=== PATIENT | female | born 1955 | race Caucasian/White ===

== ENCOUNTER 2017-03-13 10:38 | Day surgery (SDC) | payer BC, MEDICARE ==
[2017-03-13] MEDS ORDERED: Cyanocobalamin (Vitamin B12) 1,000 MCG/ML SDV IM ONE (11:15)
[2017-03-13] MEDS ORDERED: Lactated Ringers 1,000 ML IV SCH (11:15)
[2017-03-13] MEDS ORDERED: Glycopyrrolate 0.2 MG/ML 2 ML SDV IVPUSH ONE (12:15)
[2017-03-13] MEDS ORDERED: MVI, Adult with Vitamin K 10 ML, Thiamine 200 MG, Chromium/Copper/Mang/Selen/Zn 1 ML in... IV ONE ×4 (12:15)
[2017-03-13] MEDS ORDERED: Propofol 200 MG/20 ML SDV ONE (12:49)
[2017-03-13] MEDS ORDERED: fentaNYL 100 MCG/2 ML SDV ONE (12:49)
[2017-03-13] MEDS ORDERED: Pantoprazole 40 MG Vial IVPUSH ONE (14:00)
[2017-03-13 17:22] VITALS: BP 112/62
--- NOTE | 2017-03-19 12:01 | OR ---
DATE OF PROCEDURE: 03/13/2017 PREOPERATIVE DIAGNOSES: Chronic nausea associated with dropping hemoglobin. 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 OPERATIVE PROCEDURE: Upper GI endoscopy with biopsy of gastric pouch for CLOtest. ANESTHESIA: IV sedation. INDICATION FOR PROCEDURE: This is a 61-year-old status post Maikol-en-Y gastric bypass approximately a year ago. Recently she had increasing problems with nausea and dropping hemoglobin; hemoglobin having dropped to 10.7 in November, 9.8 in January, and most recently 8.7. This was associated with some persistent nausea and some epigastric discomfort. A colonoscopy done last week was reportedly normal. Plan is to proceed with an upper GI endoscopy with biopsies as indicated. Potential risks including bleeding and perforation were discussed, and the patient wishes to proceed. DETAILS OF PROCEDURE: The patient was taken to the operating room, placed in a left lateral decubitus position. IV sedation was administered, after which the upper GI endoscope was passed orally through the length of the esophagus into the gastric pouch, from there through roughly 20 cm beyond the gastrojejunostomy into the Maikol limb. Findings included a normal esophagus and EG junction area. Within the gastric pouch, there was multiple small erosions present. These were not actively bleeding, but there was some blood, that was both red and dark coffee-ground type color scattered within the gastric pouch, there was no true ulceration and no marginal ulceration at the gastrojejunostomy and the remaining portion of the Maikol limb was unremarkable. Biopsies were then obtained from the gastric pouch, sent for CLOtest for H. pylori. Minimal bleeding from the biopsy site was seen and the procedure was then concluded. The patient was taken to the recovery room in satisfactory condition. The patient will be given Protonix 40 mg IV in the recovery room and then begun on Protonix 40 mg daily #30, with refill x1 year. She will also be given Zofran 4 mg ODT to take p.r.n. in the interim. She will be following up with Naz Motley at [facility] in 2 weeks with a CBC and ferritin level to be obtained at that time. Mikey Logan MD /[id number]
== END 2017-03-13 14:35 | disposition home or self-care (01) ==
LOC: JP.SDS 10:38
PROVIDERS: ATTEND Surgery
DX: K29.00 Acute gastritis without bleeding (principal); E11.22 Type 2 diabetes mellitus with diabetic chronic kidney disease; I12.9 Hypertensive chronic kidney disease with stage 1 through stage 4 chronic kidney disease, or unspecified chronic kidney disease; N18.3 Chronic kidney disease, stage 3 (moderate); E66.9 Obesity, unspecified; E55.9 Vitamin D deficiency, unspecified; Z68.30 Body mass index [BMI] 30.0-30.9, adult; Z98.890 Other specified postprocedural states; F41.9 Anxiety disorder, unspecified; F32.9 Major depressive disorder, single episode, unspecified; Z88.8 Allergy status to other drugs, medicaments and biological substances; Z90.49 Acquired absence of other specified parts of digestive tract; Z98.84 Bariatric surgery status
CPT/HCPCS: 36415; 43239; 82607; 82728; 85027; 87081; C9113; J2704; J3010; J3411; J3420; J7120; J3490

== ENCOUNTER 2017-04-02 01:20 | Inpatient (IN) | payer MEDICARE ==
[2017-04-02] MEDS ORDERED: Ondansetron 4 MG/2 ML SDV IV PRN (01:44)
[2017-04-02] MEDS: Metoclopramide 10 MG/2 ML SDV IVPUSH SCH ×4 (03:32→22:00)
[2017-04-02] MEDS ORDERED: Pantoprazole 40 MG Vial IVPUSH SCH (04:00)
[2017-04-02] MEDS ORDERED: FLU Vacc QS 2017-18 (36mos UP)/PF 60 MCG/0.5 ML Syringe IM ONE (10:00)
[2017-04-02] MEDS: diphenhydrAMINE 25 MG Cap PO PRN ×2 (10:52→20:50)
--- NOTE | 2017-04-02 11:03 | PCM.CONS ---
H&P History of Present Illness - General Date of Service: 04/02/17 Admit Problem/Dx: Admission Diagnosis/Problem Admission Diagnosis/Problem Nausea Source of Information: Patient, Provider History Limitations: Reports: No Limitations - History of Present Illness Initial Comments - Free Text/Narative: Mattie was admitted last night after presenting to the emergency room in [place]. She was transferred here with concern for incarcerated ventral hernia. I was asked to see her this morning by Dr. Logan/Naz Motley regarding lower extremity edema, lactic acidosis and nausea. She reports a three-month difficulty with nausea and she has been eating less and less each day. She has not had anything to eat in almost 5 days because of the nausea. She has intermittent abdominal pains but these are relatively mild. Nausea is present all day long and seems even a little bit worse when she tries to eat. She has had upper endoscopy which was unremarkable. She has not had any fevers or chills. She has noticed over the last month that there has been increased swelling in both of her legs. She did have Unna boots for a while but these caused a rash and have been discontinued. Lower extremity edema is still present but improved compared to a week ago. She does not have orthopnea. She does not have paroxysmal nocturnal dyspnea. Bowels and bladder have been functioning normally. - Related Data Allergies/Adverse Reactions: Allergies Allergy/AdvReac Type Severity Reaction Status Date / Time Benzodiazepines AdvReac Other Verified 03/13/17 11:02 Home Medications: Home Meds Cyanocobalamin (Vitamin B-12) [Vitamin B-12] 1,000 mcg SL DAILY 09/22/15 [ History] tiZANidine [Zanaflex] 4 mg PO DAILY PRN 09/22/15 [History] DULoxetine [Cymbalta] 120 mg PO BEDTIME 03/08/16 [History] Multivitamin W/Iron, Minerals [Flintstones Complete] 1 each PO BID #100 tab.chew 03/13/16 [Rx] Ondansetron [Zofran ODT] 4 mg PO Q6H PRN #30 tab.dis 03/13/16 [Rx] Cholecalciferol (Vitamin D3) [Cholecalciferol] 2,000 units PO DAILY 03/12/17 [ History] Cholecalciferol (Vitamin D3) [Vitamin D3] 50,000 unit PO WEEKLY 03/12/17 [ History] Furosemide [Lasix] 40 mg PO BID 03/12/17 [History] Levothyroxine Sodium [Synthroid] 75 mcg PO DAILY 03/12/17 [History] Thiamine HCl [Vitamin B-1] 100 mg PO DAILY 03/12/17 [History] buPROPion HCl [Wellbutrin SR] 150 mg PO DAILY 03/12/17 [History] Past Medical History HEENT History: Reports: Impaired Vision Cardiovascular History: Reports: Hypertension, Other (See Below) Other Cardiovascular History: leg edema Respiratory History: Reports: Pneumonia, Recurrent Gastrointestinal History: Reports: Cholelithiasis, Chronic Diarrhea, Hemorrhoids Genitourinary History: Reports: Renal Calculus, UTI, Recurrent TRIAGE SPECIALIST History: Reports: Musculoskeletal History: Reports: Back Pain, Chronic, Fracture, Other (See Below ) Other Musculoskeletal History: right ankle with pins and screws Neurological History: Reports: Concussion, Neuropathy, Peripheral Other Neuro History: left leg Psychiatric History: Reports: Anxiety, Depression, Mood Swings, Panic Attack Endocrine/Metabolic History: Reports: Diabetes, Type II, Obesity/BMI 30+, Vitamin D Deficiency Hematologic History: Reports: Anemia, B12 Deficiency, Iron Deficiency, Other ( See Below) Other Hematologic History: iron infusions - Infectious Disease History Infectious Disease History: Reports: Herpes, Measles, Mumps - Past Surgical History Head Surgeries/Procedures: Reports: None GI Surgical History: Reports: Bariatric Procedure, Cholecystectomy, Colonoscopy , Other (See Below) Other GI Surgeries/Procedures: revision RNY Female Surgical History: Reports: Lithotripsy/ESWL, Tubal Ligation Neurological Surgical History: Reports: Other (See Below) Other Neurological Surgeries/Procedures: back surgery x 2. Musculoskeletal Surgical History: Reports: Other (See Below) Other Musculoskeletal Surgeries/Procedures:: right ankle Social & Family History - Family History Family Medical History: Noncontributory - Tobacco Use Smoking Status *Q: Never Smoker Second Hand Smoke Exposure: No - Caffeine Use Caffeine Use: Reports: None - Alcohol Use Alcohol Use History: No - Recreational Drug Use Recreational Drug Use: No H&P Review of Systems - Review of Systems: Review Of Systems: See Below Free Text/Narrative: A complete 12 point review of systems was obtained. Pertinent positives and negatives are noted in the history of present illness. All other systems were reviewed and were negative except as noted. Exam - Exam Exam: See Below - Vital Signs Vital Signs: Last Vital Signs Temp 37.6 C 04/02/17 07:25 Pulse 115 H 04/02/17 07:25 Resp 16 04/02/17 07:25 BP 141/98 H 04/02/17 07:25 Pulse Ox 99 04/02/17 07:25 Weight: 86.636 kg - Exam Quality Assessment: No: Supplemental Oxygen General: Alert, Oriented, Cooperative. No: Mild Distress HEENT: Conjunctiva Clear. No: Mucosa Moist & [place] (dry), Scleral Icterus Neck: Supple, Trachea Midline. No: Lymphadenopathy Lungs: Clear to Auscultation, Normal Respiratory Effort Cardiovascular: Regular Rate, Regular Rhythm. No: Normal S1, Normal S2 GI/Abdominal Exam: Normal Bowel Sounds, Soft, Non-Tender, No Distention, No Mass. No: Hernia Back Exam: Normal Inspection. No: Muscle Spasm Extremities: Pedal Edema (pitting edema both lower legs). No: Increased Warmth Skin: Warm, Dry, Rash (chronic venous stasis both lower legs) Neuro Extensive - Mental Status: Alert, Oriented x3, Nl Response to Commands Neuro Extensive - Motor, Sensory, Reflexes: CN II-XII Intact. No: Dysarthria, Abnormal Motor, Tremor Psychiatric: Alert, Normal Affect - Patient Data Lab Results Last 24 hrs: Laboratory Results - last 24 hr 04/02/17 04/02/17 04/02/17 Range/Units 04:00 04:00 04:00 WBC 8.1 (4.5-11.0) K/uL RBC 3.16 L (3.30-5.50) M/uL Hgb 9.2 L (12.0-15.0) g/dL Hct 29.5 L (36.0-48.0) % MCV 93 (80-98) fL MCH 29 (27-31) pg MCHC 31 L (32-36) % Plt Count 381 (150-400) K/uL Sodium 143 (140-148) mmol/L Potassium 3.8 (3.6-5.2) mmol/L Chloride 111 H (100-108) mmol/L Carbon Dioxide 23 (21-32) mmol/L Anion Gap 12.8 (5.0-14.0) mmol/L BUN 21 H (7-18) mg/dL Creatinine 1.7 H D (0.6-1.0) mg/dL Est Cr Clr Drug Dosing 32.94 mL/min Estimated GFR (MDRD) 30 L (>60) Glucose 108 H (74-106) mg/dL Lactic Acid 3.3 H (0.4-2.0) mmol/L Calcium 7.5 L D (8.5-10.1) mg/dL Phosphorus 3.8 (2.5-4.9) mg/dL Magnesium 1.7 L (1.8-2.4) mg/dL Total Bilirubin 0.8 (0.2-1.0) mg/dL AST 15 (15-37) U/L ALT 27 (12-78) U/L Alkaline Phosphatase 109 (46-116) U/L NT-Pro-B Natriuret Pep (5-125) pg/mL Total Protein 4.5 L (6.4-8.2) g/dL Albumin 1.6 L (3.4-5.0) g/dL Globulin 2.9 (2.3-3.5) g/dL Albumin/Globulin Ratio 0.6 L (1.2-2.2) 04/02/17 Range/Units 08:41 WBC (4.5-11.0) K/uL RBC (3.30-5.50) M/uL Hgb (12.0-15.0) g/dL Hct (36.0-48.0) % MCV (80-98) fL MCH (27-31) pg MCHC (32-36) % Plt Count (150-400) K/uL Sodium (140-148) mmol/L Potassium (3.6-5.2) mmol/L Chloride (100-108) mmol/L Carbon Dioxide (21-32) mmol/L Anion Gap (5.0-14.0) mmol/L BUN (7-18) mg/dL Creatinine (0.6-1.0) mg/dL Est Cr Clr Drug Dosing mL/min Estimated GFR (MDRD) (>60) Glucose (74-106) mg/dL Lactic Acid (0.4-2.0) mmol/L Calcium (8.5-10.1) mg/dL Phosphorus (2.5-4.9) mg/dL Magnesium (1.8-2.4) mg/dL Total Bilirubin (0.2-1.0) mg/dL AST (15-37) U/L ALT (12-78) U/L Alkaline Phosphatase (46-116) U/L NT-Pro-B Natriuret Pep 726 H (5-125) pg/mL Total Protein (6.4-8.2) g/dL Albumin (3.4-5.0) g/dL Globulin (2.3-3.5) g/dL Albumin/Globulin Ratio (1.2-2.2) Result Diagrams: 04/02/17 04:00 04/02/17 04:00 Imaging Impressions Last 24 hrs: CT abd/pelvis - no evidence for obstruction. Possible loops of bowel in ventral hernia. No other acute findings. Hx of gastric bypass. Consult PN Assessment/Plan Procedures: Procedures ASSAY OF FERRITIN (03/13/17) ASSAY OF MAGNESIUM (03/11/16) ASSAY OF NATRIURETIC PEPTIDE (03/11/16) ASSAY OF PHOSPHORUS (03/11/16) BLOOD TYPING SEROLOGIC ABO (03/11/16) BLOOD TYPING SEROLOGIC RH(D) (03/11/16) COMPLETE CBC AUTOMATED (03/13/17) CULTURE SCREEN ONLY (03/13/17) EGD BIOPSY SINGLE/MULTIPLE (03/13/17) GLUCOSE BLOOD TEST (03/11/16) GLYCOSYLATED HEMOGLOBIN TEST (03/11/16) METABOLIC PANEL TOTAL CA (03/11/16) RBC ANTIBODY SCREEN (03/11/16) ROUTINE VENIPUNCTURE (03/13/17) VITAMIN B-12 (03/13/17) X-RAY UPPER GI DELAY W/O KUB (03/11/16) (1) Nausea SNOMED Code(s): 402208942 Code(s): R11.0 - NAUSEA Current Visit: Yes (2) Hypoalbuminemia due to protein-calorie malnutrition SNOMED Code(s): 351800787 Code(s): E46 - UNSPECIFIED PROTEIN-CALORIE MALNUTRITION Current Visit: Yes (3) CKD (chronic kidney disease) stage 3, GFR 30-59 ml/min SNOMED Code(s): 989864535 Code(s): N18.3 - CHRONIC KIDNEY DISEASE, STAGE 3 (MODERATE) Current Visit: No Problem List Initiated/Reviewed/Updated: Yes My Orders Last 24 Hours: My Active Orders 04/02/17 11:15 Lactated Ringers [Ringers, Lactated] 1,000 ml IV ASDIRECTED Plan: ASSESSMENT AND PLAN Lower extremity edema - suspect low albumin is leading to low oncotic pressure and dependent edema. Recent echocardiogram showed normal cardiac function. Slow progression over the past month and lack of response to diuretics suggests dependent edema/lymphedema. Swelling is better at this time. I would suspect that as her albumin improves that her edema should improve. She should respond to compression stockings if she is able to tolerate them. I don't believe that further cardiac workup is necessary at this time. -Elevate legs, consider compression stockings Lactic acidosis - I suspect this is related to hypoperfusion with poor intake and concurrent use of diuretics. This should improve with IV fluids. No evidence for infection. -IV fluids through the night -Repeat labs in the morning -Follow-up urinalysis Persistent nausea - patient reports 3 months of nausea and has had progressive difficulties with oral intake. CT scan did not reveal obvious pathology. No concerning medications on her home list that I can see. Exact cause for the nausea is not entirely clear. Hopefully with hydration this will help. -Symptomatic management -Advance diet as tolerated Stage III chronic kidney disease - creatinine elevated from baseline but not dramatically at this time. I suspect this is related to hypovolemia as well and should improve with fluids. -IV fluids -Labs in the morning Thank you for the interesting consultation and allowing me to be involved in Mattie's care. I will continue to follow along during the acute phase of the hospital stay. Cole Bell M.D. Requesting Provider: Dr. Logan/Naz Motley Date Consult Requested: 04/02/17 Reason for Consult: Lower extremity edema, nausea Patient History Reviewed: Yes Admission H&P Reviewed: No (Not available) Notified Requestor: No Time Spent (in minutes): 60 (Records from emergency room visit in [place] last night as well as nephrology and oncology notes were reviewed)
[2017-04-02] MEDS ORDERED: Lactated Ringers 1,000 ML IV ONE (11:15)
[2017-04-02] MEDS: Dextrose 5%-Lactated Ringers 1,000 ML IV SCH ×2 (13:42→23:17)
[2017-04-02] MEDS ORDERED: HYDROmorphone 0.5 MG/0.5 ML Syringe IVPUSH PRN (15:21)
--- NOTE | 2017-04-02 18:13 | PCM.HP ---
H&P History of Present Illness - General Date of Service: 04/02/17 Admit Problem/Dx: Admission Diagnosis/Problem Admission Diagnosis/Problem Nausea Source of Information: Patient History Limitations: Reports: Other (weak and tired. ) - History of Present Illness Initial Comments - Free Text/Narative: Mattie reports that in November she developed nausea and peripheral swelling. she states that she did not have any abdominal pain. Mattie went in to her provider and was found to have a low hemoglobin and for a few weeks it kept dropping. She also was found to be in Stage 3 kidney disease and started noticing a lot of swelling/fluid retention all over. Her legs started swelling and became so tight the skin opened up and she was having clear drainage from open areas in the skin of her legs. Nausea persisted and an EGD by Mikey Logan MD revealed gastritis. Mattie had GABBI Boots on her legs 2 weeks and had to remove them about 5 days early because her legs became allergic to the gabbi boots. Stoney went to the ED in [place] for nausea and inability to eat and was transferred by ambulance to [place], [place] Improves with: Reports: None Worsens with: Reports: None Associated Symptoms: Reports: Loss of Appetite, Malaise, Nausea/Vomiting, Weakness Abdomen Pain Score (Numeric/FACES): 5 - Related Data Allergies/Adverse Reactions: Allergies Allergy/AdvReac Type Severity Reaction Status Date / Time Benzodiazepines AdvReac Other Verified 03/13/17 11:02 Home Medications: Home Meds Cyanocobalamin (Vitamin B-12) [Vitamin B-12] 1,000 mcg SL DAILY 09/22/15 [ History] tiZANidine [Zanaflex] 4 mg PO DAILY PRN 09/22/15 [History] DULoxetine [Cymbalta] 120 mg PO BEDTIME 03/08/16 [History] Multivitamin W/Iron, Minerals [Flintstones Complete] 1 each PO BID #100 tab.chew 03/13/16 [Rx] Ondansetron [Zofran ODT] 4 mg PO Q6H PRN #30 tab.dis 03/13/16 [Rx] Cholecalciferol (Vitamin D3) [Cholecalciferol] 2,000 units PO DAILY 03/12/17 [ History] Cholecalciferol (Vitamin D3) [Vitamin D3] 50,000 unit PO WEEKLY 03/12/17 [ History] Furosemide [Lasix] 40 mg PO BID 03/12/17 [History] Levothyroxine Sodium [Synthroid] 75 mcg PO DAILY 03/12/17 [History] Thiamine HCl [Vitamin B-1] 100 mg PO DAILY 03/12/17 [History] buPROPion HCl [Wellbutrin SR] 150 mg PO DAILY 03/12/17 [History] Past Medical History HEENT History: Reports: Impaired Vision Cardiovascular History: Reports: Hypertension, Other (See Below) Other Cardiovascular History: leg edema Respiratory History: Reports: Pneumonia, Recurrent Gastrointestinal History: Reports: Cholelithiasis, Chronic Diarrhea, Hemorrhoids Genitourinary History: Reports: Renal Calculus, UTI, Recurrent [employer]ENTICE History: Reports: Musculoskeletal History: Reports: Back Pain, Chronic, Fracture, Other (See Below ) Other Musculoskeletal History: right ankle with pins and screws Neurological History: Reports: Concussion, Neuropathy, Peripheral Other Neuro History: left leg Psychiatric History: Reports: Anxiety, Depression, Mood Swings, Panic Attack Endocrine/Metabolic History: Reports: Diabetes, Type II, Obesity/BMI 30+, Vitamin D Deficiency Hematologic History: Reports: Anemia, B12 Deficiency, Iron Deficiency, Other ( See Below) Other Hematologic History: iron infusions - Infectious Disease History Infectious Disease History: Reports: Herpes, Measles, Mumps - Past Surgical History Head Surgeries/Procedures: Reports: None GI Surgical History: Reports: Bariatric Procedure, Cholecystectomy, Colonoscopy , Other (See Below) Other GI Surgeries/Procedures: revision RNY Female Surgical History: Reports: Lithotripsy/ESWL, Tubal Ligation Neurological Surgical History: Reports: Other (See Below) Other Neurological Surgeries/Procedures: back surgery x 2. Musculoskeletal Surgical History: Reports: Other (See Below) Other Musculoskeletal Surgeries/Procedures:: right ankle Social & Family History - Family History Family Medical History: Noncontributory - Tobacco Use Smoking Status *Q: Never Smoker Second Hand Smoke Exposure: No - Caffeine Use Caffeine Use: Reports: None - Recreational Drug Use Recreational Drug Use: No H&P Review of Systems - Review of Systems: Review Of Systems: See Below General: Reports: Malaise, Weakness, Fatigue HEENT: Reports: No Symptoms Pulmonary: Reports: Shortness of Breath, Cough Cardiovascular: Reports: Dyspnea on Exertion, Edema, Lightheadedness Gastrointestinal: Reports: Decreased Appetite, Nausea Genitourinary: Reports: No Symptoms Musculoskeletal: Reports: Neck Pain, Back Pain, Muscle Stiffness Skin: Reports: No Symptoms Psychiatric: Reports: Depression, Anxiety Neurological: Reports: No Symptoms Hematologic/Lymphatic: Reports: Anemia Immunologic: Reports: No Symptoms Exam - Exam Exam: See Below - Vital Signs Vital Signs: Last Vital Signs Temp 99.2 F 04/02/17 15:00 Pulse 86 04/02/17 15:00 Resp 20 04/02/17 15:00 BP 164/92 H 04/02/17 15:00 Pulse Ox 100 04/02/17 15:00 Weight: 191 lb - Exam Quality Assessment: DVT Prophylaxis General: Moderate Distress, Lethargic HEENT: PERRLA, Other (marked facial swelling ) Neck: Supple Lungs: Decreased Breath Sounds Cardiovascular: Regular Rate, Regular Rhythm GI/Abdominal Exam: Soft, Non-Tender (Female) Exam: Deferred Rectal (Female) Exam: Deferred Back Exam: Normal Inspection, Full Range of Motion Extremities: Leg Pain, Other (legs are swollen, red and warm. skin is tight. ) Skin: Warm, Dry Neurological: Cranial Nerves Intact Neuro Extensive - Mental Status: Alert, Oriented x3, Normal Mood/Affect, Normal Cognition Neuro Extensive - Motor, Sensory, Reflexes: CN II-XII Intact Psychiatric: Alert, Labile Mood, Anxious - Patient Data Lab Results Last 24 hrs: Laboratory Results - last 24 hr 04/02/17 04/02/17 04/02/17 Range/Units 04:00 04:00 04:00 WBC 8.1 (4.5-11.0) K/uL RBC 3.16 L (3.30-5.50) M/uL Hgb 9.2 L (12.0-15.0) g/dL Hct 29.5 L (36.0-48.0) % MCV 93 (80-98) fL MCH 29 (27-31) pg MCHC 31 L (32-36) % Plt Count 381 (150-400) K/uL Sodium 143 (140-148) mmol/L Potassium 3.8 (3.6-5.2) mmol/L Chloride 111 H (100-108) mmol/L Carbon Dioxide 23 (21-32) mmol/L Anion Gap 12.8 (5.0-14.0) mmol/L BUN 21 H (7-18) mg/dL Creatinine 1.7 H D (0.6-1.0) mg/dL Est Cr Clr Drug Dosing 32.94 mL/min Estimated GFR (MDRD) 30 L (>60) Glucose 108 H (74-106) mg/dL Lactic Acid 3.3 H (0.4-2.0) mmol/L Calcium 7.5 L D (8.5-10.1) mg/dL Phosphorus 3.8 (2.5-4.9) mg/dL Magnesium 1.7 L (1.8-2.4) mg/dL Total Bilirubin 0.8 (0.2-1.0) mg/dL AST 15 (15-37) U/L ALT 27 (12-78) U/L Alkaline Phosphatase 109 (46-116) U/L NT-Pro-B Natriuret Pep (5-125) pg/mL Total Protein 4.5 L (6.4-8.2) g/dL Albumin 1.6 L (3.4-5.0) g/dL Globulin 2.9 (2.3-3.5) g/dL Albumin/Globulin Ratio 0.6 L (1.2-2.2) Urine Color Urine Appearance Urine pH (4.5-8.0) Ur Specific [place] (1.008-1.030) Urine Protein (NEGATIVE) mg/dL Urine Glucose (UA) (NEGATIVE) mg/dL Urine Ketones (NEGATIVE) mg/dL Urine Occult Blood (NEGATIVE) Urine Nitrite (NEGATIVE) Urine Bilirubin (NEGATIVE) Urine Urobilinogen (NORMAL) mg/dL Ur Leukocyte Esterase (NEGATIVE) Urine RBC (0-5) Urine WBC (0-5) Ur Epithelial Cells Amorphous Sediment Urine Bacteria Urine Mucus Urine Other Urine Opiates Screen (NEGATIVE) Ur Oxycodone Screen (NEGATIVE) Urine Methadone Screen (NEGATIVE) Ur Propoxyphene Screen (NEGATIVE) Ur Barbiturates Screen (NEGATIVE) Ur Tricyclics Screen (NEGATIVE) Ur Phencyclidine Scrn (NEGATIVE) Ur Amphetamine Screen (NEGATIVE) U Methamphetamines Scrn (NEGATIVE) Urine MDMA Screen (NEGATIVE) U Benzodiazepines Scrn (NEGATIVE) U Cocaine Metab Screen (NEGATIVE) U Marijuana (THC) Screen (NEGATIVE) 04/02/17 04/02/17 04/02/17 Range/Units 08:41 17:16 17:16 WBC (4.5-11.0) K/uL RBC (3.30-5.50) M/uL Hgb (12.0-15.0) g/dL Hct (36.0-48.0) % MCV (80-98) fL MCH (27-31) pg MCHC (32-36) % Plt Count (150-400) K/uL Sodium (140-148) mmol/L Potassium (3.6-5.2) mmol/L Chloride (100-108) mmol/L Carbon Dioxide (21-32) mmol/L Anion Gap (5.0-14.0) mmol/L BUN (7-18) mg/dL Creatinine (0.6-1.0) mg/dL Est Cr Clr Drug Dosing mL/min Estimated GFR (MDRD) (>60) Glucose (74-106) mg/dL Lactic Acid (0.4-2.0) mmol/L Calcium (8.5-10.1) mg/dL Phosphorus (2.5-4.9) mg/dL Magnesium (1.8-2.4) mg/dL Total Bilirubin (0.2-1.0) mg/dL AST (15-37) U/L ALT (12-78) U/L Alkaline Phosphatase (46-116) U/L NT-Pro-B Natriuret Pep 726 H (5-125) pg/mL Total Protein (6.4-8.2) g/dL Albumin (3.4-5.0) g/dL Globulin (2.3-3.5) g/dL Albumin/Globulin Ratio (1.2-2.2) Urine Color Yellow Urine Appearance Cloudy Urine pH 5.0 (4.5-8.0) Ur Specific [place] 1.015 (1.008-1.030) Urine Protein Negative (NEGATIVE) mg/dL Urine Glucose (UA) Normal (NEGATIVE) mg/dL Urine Ketones Negative (NEGATIVE) mg/dL Urine Occult Blood Negative (NEGATIVE) Urine Nitrite Negative (NEGATIVE) Urine Bilirubin Negative (NEGATIVE) Urine Urobilinogen Normal (NORMAL) mg/dL Ur Leukocyte Esterase Small (NEGATIVE) Urine RBC 0-5 (0-5) Urine WBC 0-5 (0-5) Ur Epithelial Cells Moderate Amorphous Sediment Few Urine Bacteria Few Urine Mucus Few Urine Other See note Urine Opiates Screen Negative (NEGATIVE) Ur Oxycodone Screen Negative (NEGATIVE) Urine Methadone Screen Negative (NEGATIVE) Ur Propoxyphene Screen Negative (NEGATIVE) Ur Barbiturates Screen Negative (NEGATIVE) Ur Tricyclics Screen Positive H (NEGATIVE) Ur Phencyclidine Scrn Negative (NEGATIVE) Ur Amphetamine Screen Negative (NEGATIVE) U Methamphetamines Scrn Negative (NEGATIVE) Urine MDMA Screen Negative (NEGATIVE) U Benzodiazepines Scrn Negative (NEGATIVE) U Cocaine Metab Screen Negative (NEGATIVE) U Marijuana (THC) Screen Negative (NEGATIVE) Result Diagrams: 04/02/17 04:00 04/02/17 04:00 *Q Meaningful Use (ADM) - VTE *Q VTE Criteria *Q: - Stroke *Q Stroke Criteria *Q: - AMI *Q AMI Criteria *Q: - Problem List (1) Nausea SNOMED Code(s): 208325474 ICD Code: R11.0 - NAUSEA Status: Acute Current Visit: Yes (2) Hypoalbuminemia due to protein-calorie malnutrition SNOMED Code(s): 267600562 ICD Code: E46 - UNSPECIFIED PROTEIN-CALORIE MALNUTRITION Status: Acute Current Visit: Yes (3) Panic disorder SNOMED Code(s): 836415406 ICD Code: F41.0 - PANIC DISORDER [EPISODIC PAROXYSMAL ANXIETY] Status: Chronic Current Visit: No (4) CKD (chronic kidney disease) stage 3, GFR 30-59 ml/min SNOMED Code(s): 059282369 ICD Code: N18.3 - CHRONIC KIDNEY DISEASE, STAGE 3 (MODERATE) Status: Chronic Current Visit: No (5) Status post gastric bypass for obesity SNOMED Code(s): 858744693, 457168982, 565917966 ICD Code: Z98.84 - BARIATRIC SURGERY STATUS Status: Chronic Current Visit : No Problem List Initiated/Reviewed/Updated: Yes Orders Last 24hrs: Active Orders 24 hr Category Date Time Status Patient Status [ADT] Routine ADT 04/02/17 01:20 Active Head of Bed Elevation [RC] ASDIRECTED Care 04/02/17 01:51 Active Intake and Output [RC] Q12H Care 04/02/17 01:46 Active Notify Provider Consults [RC] ASDIRECTED Care 04/02/17 08:44 Active Oxygen Therapy [RC] PRN Care 04/02/17 01:44 Active Up With Assistance [RC] ASDIRECTED Care 04/02/17 01:44 Active VTE/DVT Education [RC] .PRN Care 04/02/17 01:44 Active Vital Signs [RC] Q4H Care 04/02/17 01:44 Active Consult to Physician [CONS] Routine Cons 04/02/17 08:42 Ordered NPO [Nothing Per Oral Diet] [DIET] Diet 04/02/17 Dinner Active Abdomen 2V AP Flat Upright [CR] Routine Exams 04/03/17 04:00 Ordered CBC W/O DIFF,HEMOGRAM [HEME] Timed Lab 04/03/17 04:00 Ordered COMPREHENSIVE METABOLIC PN,CMP [CHEM] Timed Lab 04/03/17 04:00 Ordered LACTIC ACID [CHEM] Routine Lab 04/03/17 04:00 Ordered MAGNESIUM [CHEM] Timed Lab 04/03/17 04:00 Ordered PHOSPHORUS [CHEM] Timed Lab 04/03/17 04:00 Ordered PRO B-TYPE NATRIUR PEPT,BNPPRO [CHEM] Timed Lab 04/03/17 04:00 Ordered Albumin Human [Albumin 25%] Med 04/02/17 12:00 Active 25 gm in 100 ml IV Q24H Albumin Human [Albumin 25%] Med 04/02/17 16:00 Active 25 gm in 100 ml IV Q24H DULoxetine [Cymbalta] Med 04/02/17 21:00 Active 120 mg PO BEDTIME Dextrose 5%-Lactated Ringers 1,000 ml Med 04/02/17 02:00 Active IV ASDIRECTED Furosemide [Lasix] Med 04/02/17 21:00 Active 40 mg PO BID HYDROmorphone [Dilaudid] Med 04/02/17 15:21 Active 0.5 - 1 mg IVPUSH Q2H PRN Levothyroxine Med 04/03/17 07:30 Active 75 mcg PO ACBREAKFAST Metoclopramide [Reglan] Med 04/02/17 04:00 Active 10 mg IVPUSH Q6H Ondansetron [Zofran] Med 04/02/17 01:44 Active 4 mg IV Q4H PRN Pantoprazole [ProTONIX IV] Med 04/03/17 07:30 Active 40 mg IVPUSH Q24H buPROPion [Wellbutrin SR] Med 04/03/17 09:00 Active 150 mg PO DAILY diphenhydrAMINE [Benadryl] Med 04/02/17 10:24 Active 25 mg PO Q4H PRN HAYDE Bandage [Elastic Wrap] [OM.PC] Routine Oth 04/02/17 01:52 Ordered Sequential Compression Device [OM.PC] Per Unit Routine Oth 04/02/17 01:46 Ordered Resuscitation Status Routine Resus Stat 04/02/17 01:44 Ordered Medication Orders Bupropion HCl (Wellbutrin Sr) 150 mg PO DAILY ARACELI Diphenhydramine HCl (Benadryl) 25 mg PO Q4H PRN PRN Reason: Itching Last Admin: 04/02/17 10:52 Dose: 25 mg Duloxetine HCl (Cymbalta) 120 mg PO BEDTIME ARACELI Furosemide (Lasix) 40 mg PO BID ARACELI Hydromorphone HCl (Dilaudid) 0.5 - 1 mg IVPUSH Q2H PRN PRN Reason: Pain Last Admin: 04/02/17 15:32 Dose: 1 mg Dextrose/Lactated Ringer's (Dextrose 5%-Lactated Ringers) 1,000 mls @ 100 mls/ hr IV ASDIRECTED [facility] Last Admin: 04/02/17 13:42 Dose: 100 mls/hr Albumin Human (Albumin 25%) 25 gm in 100 mls @ 25 mls/hr IV Q24H [facility] Stop: 04/06/17 15:59 Last Admin: 04/02/17 13:43 Dose: 25 mls/hr Albumin Human (Albumin 25%) 25 gm in 100 mls @ 25 mls/hr IV Q24H [facility] Stop: 04/06/17 19:59 Last Admin: 04/02/17 17:55 Dose: 25 mls/hr Levothyroxine Sodium (Levothyroxine) 75 mcg PO ACBREAKFAST [facility] Metoclopramide HCl (Reglan) 10 mg IVPUSH Q6H [facility] Last Admin: 04/02/17 15:38 Dose: 10 mg Admin: 04/02/17 09:13 Dose: 10 mg Admin: 04/02/17 03:32 Dose: 10 mg Ondansetron HCl (Zofran) 4 mg IV Q4H PRN PRN Reason: Nausea/Vomiting Last Admin: 04/02/17 15:07 Dose: 4 mg Pantoprazole Sodium (Protonix Iv) 40 mg IVPUSH Q24H ARACELI Assessment/Plan Comment:: Plan: Admit to Inpatient Rx Albumin 50 grams IV for 5 days Full Liquid Diet D5LR at 100 mls Check UA/UC Home medications restarted. Will evaluate prn or in AM Naz Carbajal
[2017-04-02] MEDS: Furosemide 40 MG Tab PO SCH ×2 (20:53→23:13)
[2017-04-02] MEDS: DULoxetine 30 MG Cap PO SCH (20:53)
[2017-04-03] MEDS: Metoclopramide 10 MG/2 ML SDV IVPUSH SCH ×4 (03:28→23:56)
[2017-04-03] MEDS: Pantoprazole 40 MG Vial IVPUSH SCH (07:40)
[2017-04-03] MEDS: Levothyroxine 75 MCG Tab PO SCH (07:40)
--- NOTE | 2017-04-03 09:01 | PN ---
DATE OF SERVICE: 04/03/2017 SUBJECTIVE: Mattie was started on a step-2 gastric bypass diet yesterday. She became nauseated. She was started on Reglan 10 mg scheduled q.6 hours after IV fluids, one dose of albumin. She states that she is feeling much better. She reports that she walked down the [place] without any difficulty and did not get short of breath. She also reports that her swelling has improved. REVIEW OF SYSTEMS: HEENT: Denies headache or dizziness. NECK: Negative. CHEST: No chest pain. Her shortness of breath is less with activity. ABDOMEN: Denies any abdominal pain. Nausea, she states is better. Last bowel movement was 04/03/2017. Voiding without difficulty. Oral intake was 480 and output was 1550. EXTREMITIES: Revealed less peripheral edema. She has her legs Grupo wrapped with SCDs on. SKIN: Without rash. NEURO: Intact. PSYCHIATRIC: More animated, happy, and alert. Remainder of review of systems negative for any pertinent positives and negatives. OBJECTIVE: GENERAL: Mattie Ramirez is a pleasant 61-year-old female. VITAL SIGNS: TPR 99, 105, 16, blood pressure is 160/90. HEENT: Negative. NECK: Supple. HEART: Regular rate and rhythm. LUNGS: Clear. ABDOMEN: Soft and nontender. EXTREMITIES: Reveal trace peripheral edema. NEUROLOGIC: Intact. PSYCHIATRIC: Alert and orientated. SKIN: Without rash. LABORATORY DATA: Hemoglobin 7.8, hematocrit 25.3, potassium 3.3, and creatinine is 1.5. GFR is 35, lactic acid is 3.3, total bilirubin is 1.1, and magnesium is 1.6. BNP went up from 726 to 2504. Total protein is 4.8. Albumin remains low at 2.4, but up from 1.6. Urinalysis was clear. Urine toxicology was positive for tricyclics, for which she does take Wellbutrin. ASSESSMENT: 1. Chronic nausea. 2. Anasarca. 3. Malnutrition. 4. Gastritis. 5. Anemia with a hemoglobin of 7.8. 6. Status post Maikol-en-Y gastric bypass surgery, revision. 7. Unspecified surgical malabsorption. 8. B12 deficiency. 9. Anxiety and depression. 10.History of opioid and benzodiazepine abuse. PLAN: 1. Check upper GI with small-bowel follow-through today, call with results. 2. Check ferritin. 3. K-Phos 60 millimoles IV today. 4. Transfuse 2 units of packed red blood cells today. Check CBC, CMP, phos, and BNP in a.m. 5. Magnesium 2 grams IV x72 hours. 6. Vitamin bag to run at 100 mL per hour after blood is in. 7. Incentive spirometer to use 10 times, 4 times a day. 8. Physical Therapy consult. 9. We will evaluate p.r.n. or in a.m. Naz Motley PA-C /[phone]
--- NOTE | 2017-04-03 09:06 | CR ---
Abdomen 2V AP Flat Upright FINDINGS: The bowel gas pattern is unremarkable. There is no bowel distention. There are no pathologi c air-fluid levels. No free air is seen. No pathologic calcifications are demonstrated. IMPRESSION: No acute findings are demonstrated.
[2017-04-03] MEDS ORDERED: Iohexol 647 MG/ML 50 ML SDV PO SCH (09:45)
[2017-04-03] MEDS ORDERED: Magnesium Sulfate/Water 2 GM in Premix Bag 1 BAG IV SCH (10:00)
[2017-04-03] MEDS: Dextrose 5%-Lactated Ringers 1,000 ML IV SCH (10:42)
--- NOTE | 2017-04-03 10:44 | CR ---
Limited upper GI with small bowel follow-through The patient is status post Maikol-en-Y gastric bypass revision. There is no extravasation of contrast. The gastric pouch empties readily into a nondilated Maikol limb. The contrast passes distal to the jeju nojejunal anastomosis. Contrast reaches the distal portion of the ileum. There is no evidence of tom l distention. Impression: 1. Status post gastric bypass. No complications are evident. There is no evidence for obstruction.
[2017-04-03] MEDS: Furosemide 40 MG Tab PO SCH ×2 (10:49→20:57)
[2017-04-03] MEDS: buPROPion 150 MG Tab.SR PO SCH (10:49)
[2017-04-03] MEDS ORDERED: Furosemide 20 MG/2 ML VIAL IVPUSH ONE ×2 (12:15→15:00)
[2017-04-03] MEDS: Potassium Phosphates 20 MMOLE in Sodium Chloride 0.9% 250 ML IV SCH ×3 (13:01→20:53)
--- NOTE | 2017-04-03 15:37 | PCM.CONSN ---
- General Info Date of Service: 04/03/17 Functional Status: Reports: Pain Controlled, Tolerating Diet - Review of Systems Gastrointestinal: Reports: Nausea Systems Review Comment:: No acute events overnight. She is feeling much better today after some IV fluids. Nausea has not completely resolved but is a fair amount better. She has mild left upper abdominal pain but this is better than yesterday. She has not had any fevers. Kidney function is slightly better. Lactic acid is still mildly elevated. - Patient Data Vitals - Most Recent: Last Vital Signs Temp 37.2 C 04/03/17 14:17 Pulse 96 04/03/17 14:44 Resp 16 04/03/17 14:44 BP 135/90 04/03/17 14:44 Pulse Ox 97 04/03/17 14:44 Weight - Most Recent: 86.636 kg I&O - Last 24 Hours: Intake & Output 04/03/17 04/03/17 04/03/17 06:59 14:59 22:59 Intake Total 1282 306 100 Output Total 1550 Balance -268 306 100 Lab Results Last 24 Hours: Laboratory Results - last 24 hr 04/02/17 04/02/17 04/03/17 Range/Units 17:16 17:16 04:02 WBC 6.7 (4.5-11.0) K/uL RBC 2.67 L (3.30-5.50) M/uL Hgb 7.8 L (12.0-15.0) g/dL Hct 25.3 L (36.0-48.0) % MCV 95 (80-98) fL MCH 29 (27-31) pg MCHC 31 L (32-36) % Plt Count 319 (150-400) K/uL Sodium (140-148) mmol/L Potassium (3.6-5.2) mmol/L Chloride (100-108) mmol/L Carbon Dioxide (21-32) mmol/L Anion Gap (5.0-14.0) mmol/L BUN (7-18) mg/dL Creatinine (0.6-1.0) mg/dL Est Cr Clr Drug Dosing mL/min Estimated GFR (MDRD) (>60) Glucose (74-106) mg/dL Lactic Acid (0.4-2.0) mmol/L Calcium (8.5-10.1) mg/dL Phosphorus (2.5-4.9) mg/dL Magnesium (1.8-2.4) mg/dL Ferritin (8-388) ng/ml Total Bilirubin (0.2-1.0) mg/dL AST (15-37) U/L ALT (12-78) U/L Alkaline Phosphatase (46-116) U/L NT-Pro-B Natriuret Pep (5-125) pg/mL Total Protein (6.4-8.2) g/dL Albumin (3.4-5.0) g/dL Globulin (2.3-3.5) g/dL Albumin/Globulin Ratio (1.2-2.2) Urine Color Yellow Urine Appearance Cloudy Urine pH 5.0 (4.5-8.0) Ur Specific [place] 1.015 (1.008-1.030) Urine Protein Negative (NEGATIVE) mg/dL Urine Glucose (UA) Normal (NEGATIVE) mg/dL Urine Ketones Negative (NEGATIVE) mg/dL Urine Occult Blood Negative (NEGATIVE) Urine Nitrite Negative (NEGATIVE) Urine Bilirubin Negative (NEGATIVE) Urine Urobilinogen Normal (NORMAL) mg/dL Ur Leukocyte Esterase Small (NEGATIVE) Urine RBC 0-5 (0-5) Urine WBC 0-5 (0-5) Ur Epithelial Cells Moderate Amorphous Sediment Few Urine Bacteria Few Urine Mucus Few Urine Other See note Urine Opiates Screen Negative (NEGATIVE) Ur Oxycodone Screen Negative (NEGATIVE) Urine Methadone Screen Negative (NEGATIVE) Ur Propoxyphene Screen Negative (NEGATIVE) Ur Barbiturates Screen Negative (NEGATIVE) Ur Tricyclics Screen Positive H (NEGATIVE) Ur Phencyclidine Scrn Negative (NEGATIVE) Ur Amphetamine Screen Negative (NEGATIVE) U Methamphetamines Scrn Negative (NEGATIVE) Urine MDMA Screen Negative (NEGATIVE) U Benzodiazepines Scrn Negative (NEGATIVE) U Cocaine Metab Screen Negative (NEGATIVE) U Marijuana (THC) Screen Negative (NEGATIVE) Blood Type Gel Antibody Screen Crossmatch 04/03/17 04/03/17 04/03/17 Range/Units 04:02 04:02 07:34 WBC (4.5-11.0) K/uL RBC (3.30-5.50) M/uL Hgb (12.0-15.0) g/dL Hct (36.0-48.0) % MCV (80-98) fL MCH (27-31) pg MCHC (32-36) % Plt Count (150-400) K/uL Sodium 143 (140-148) mmol/L Potassium 3.3 L (3.6-5.2) mmol/L Chloride 109 H (100-108) mmol/L Carbon Dioxide 24 (21-32) mmol/L Anion Gap 13.3 (5.0-14.0) mmol/L BUN 15 (7-18) mg/dL Creatinine 1.5 H (0.6-1.0) mg/dL Est Cr Clr Drug Dosing 37.33 mL/min Estimated GFR (MDRD) 35 L (>60) Glucose 121 H (74-106) mg/dL Lactic Acid 3.3 H (0.4-2.0) mmol/L Calcium 8.0 L (8.5-10.1) mg/dL Phosphorus 3.0 (2.5-4.9) mg/dL Magnesium 1.6 L (1.8-2.4) mg/dL Ferritin 237 (8-388) ng/ml Total Bilirubin 1.1 H (0.2-1.0) mg/dL AST 16 (15-37) U/L ALT 25 (12-78) U/L Alkaline Phosphatase 87 (46-116) U/L NT-Pro-B Natriuret Pep 2504 H (5-125) pg/mL Total Protein 4.8 L (6.4-8.2) g/dL Albumin 2.4 L (3.4-5.0) g/dL Globulin 2.4 (2.3-3.5) g/dL Albumin/Globulin Ratio 1.0 L (1.2-2.2) Urine Color Urine Appearance Urine pH (4.5-8.0) Ur Specific [place] (1.008-1.030) Urine Protein (NEGATIVE) mg/dL Urine Glucose (UA) (NEGATIVE) mg/dL Urine Ketones (NEGATIVE) mg/dL Urine Occult Blood (NEGATIVE) Urine Nitrite (NEGATIVE) Urine Bilirubin (NEGATIVE) Urine Urobilinogen (NORMAL) mg/dL Ur Leukocyte Esterase (NEGATIVE) Urine RBC (0-5) Urine WBC (0-5) Ur Epithelial Cells Amorphous Sediment Urine Bacteria Urine Mucus Urine Other Urine Opiates Screen (NEGATIVE) Ur Oxycodone Screen (NEGATIVE) Urine Methadone Screen (NEGATIVE) Ur Propoxyphene Screen (NEGATIVE) Ur Barbiturates Screen (NEGATIVE) Ur Tricyclics Screen (NEGATIVE) Ur Phencyclidine Scrn (NEGATIVE) Ur Amphetamine Screen (NEGATIVE) U Methamphetamines Scrn (NEGATIVE) Urine MDMA Screen (NEGATIVE) U Benzodiazepines Scrn (NEGATIVE) U Cocaine Metab Screen (NEGATIVE) U Marijuana (THC) Screen (NEGATIVE) Blood Type Gel Antibody Screen Crossmatch 04/03/17 Range/Units 07:45 WBC (4.5-11.0) K/uL RBC (3.30-5.50) M/uL Hgb (12.0-15.0) g/dL Hct (36.0-48.0) % MCV (80-98) fL MCH (27-31) pg MCHC (32-36) % Plt Count (150-400) K/uL Sodium (140-148) mmol/L Potassium (3.6-5.2) mmol/L Chloride (100-108) mmol/L Carbon Dioxide (21-32) mmol/L Anion Gap (5.0-14.0) mmol/L BUN (7-18) mg/dL Creatinine (0.6-1.0) mg/dL Est Cr Clr Drug Dosing mL/min Estimated GFR (MDRD) (>60) Glucose (74-106) mg/dL Lactic Acid (0.4-2.0) mmol/L Calcium (8.5-10.1) mg/dL Phosphorus (2.5-4.9) mg/dL Magnesium (1.8-2.4) mg/dL Ferritin (8-388) ng/ml Total Bilirubin (0.2-1.0) mg/dL AST (15-37) U/L ALT (12-78) U/L Alkaline Phosphatase (46-116) U/L NT-Pro-B Natriuret Pep (5-125) pg/mL Total Protein (6.4-8.2) g/dL Albumin (3.4-5.0) g/dL Globulin (2.3-3.5) g/dL Albumin/Globulin Ratio (1.2-2.2) Urine Color Urine Appearance Urine pH (4.5-8.0) Ur Specific [place] (1.008-1.030) Urine Protein (NEGATIVE) mg/dL Urine Glucose (UA) (NEGATIVE) mg/dL Urine Ketones (NEGATIVE) mg/dL Urine Occult Blood (NEGATIVE) Urine Nitrite (NEGATIVE) Urine Bilirubin (NEGATIVE) Urine Urobilinogen (NORMAL) mg/dL Ur Leukocyte Esterase (NEGATIVE) Urine RBC (0-5) Urine WBC (0-5) Ur Epithelial Cells Amorphous Sediment Urine Bacteria Urine Mucus Urine Other Urine Opiates Screen (NEGATIVE) Ur Oxycodone Screen (NEGATIVE) Urine Methadone Screen (NEGATIVE) Ur Propoxyphene Screen (NEGATIVE) Ur Barbiturates Screen (NEGATIVE) Ur Tricyclics Screen (NEGATIVE) Ur Phencyclidine Scrn (NEGATIVE) Ur Amphetamine Screen (NEGATIVE) U Methamphetamines Scrn (NEGATIVE) Urine MDMA Screen (NEGATIVE) U Benzodiazepines Scrn (NEGATIVE) U Cocaine Metab Screen (NEGATIVE) U Marijuana (THC) Screen (NEGATIVE) Blood Type O POSITIVE Gel Antibody Screen Negative Crossmatch See Detail Med Orders - Current: Current Medications Bupropion HCl (Wellbutrin Sr) 150 mg PO DAILY ARACELI Last Admin: 04/03/17 10:49 Dose: 150 mg Diphenhydramine HCl (Benadryl) 25 mg PO Q4H PRN PRN Reason: Itching Last Admin: 04/02/17 20:50 Dose: 25 mg Duloxetine HCl (Cymbalta) 120 mg PO BEDTIME ARACELI Last Admin: 04/02/17 20:53 Dose: 120 mg Furosemide (Lasix) 40 mg PO BID ARACELI Last Admin: 04/03/17 10:49 Dose: 40 mg Hydromorphone HCl (Dilaudid) 0.5 - 1 mg IVPUSH Q2H PRN PRN Reason: Pain Last Admin: 04/02/17 15:32 Dose: 1 mg Dextrose/Lactated Ringer's (Dextrose 5%-Lactated Ringers) 1,000 mls @ 100 mls/ hr IV ASDIRECTED ARACELI Last Admin: 04/03/17 10:42 Dose: 100 mls/hr Albumin Human (Albumin 25%) 25 gm in 100 mls @ 25 mls/hr IV Q24H [facility]ACEL[facility] Stop: 04/06/17 19:59 Last Admin: 04/03/17 15:12 Dose: 25 mls/hr Multivitamins/Minerals 10 ml/Thiamine HCl 100 mg/ Magnesium Sulfate 2 gm/ Folic Acid 1 mg / Lactated Ringer's 1,015.2 mls @ 100 mls/hr IV ONETIME ONE Stop: 04/04/17 07:09 Potassium Phosphate 20 mmole/ (Sodium Chloride) 256.6667 mls @ 86 mls/hr IV Q3H [facility] Stop: 04/03/17 19:59 Last Infusion: 04/03/17 15:07 Dose: Infused Albumin Human (Albumin 25%) 25 gm in 100 mls @ 25 mls/hr IV Q24H [facility] Stop: 04/06/17 23:59 Cefoxitin Sodium 2 gm/ Sodium (Chloride) 50 mls @ 100 mls/hr IV ONETIME ONE Stop: 04/04/17 10:29 Magnesium Sulfate 2 gm/ Sodium (Chloride) 54 mls @ 27 mls/hr IV Q6H [facility] Stop: 04/06/17 05:59 Levothyroxine Sodium (Levothyroxine) 75 mcg PO ACBREAKFAST [facility] Last Admin: 04/03/17 07:40 Dose: 75 mcg Metoclopramide HCl (Reglan) 10 mg IVPUSH Q6H [facility] Last Admin: 04/03/17 10:55 Dose: 10 mg Ondansetron HCl (Zofran) 4 mg IV Q4H PRN PRN Reason: Nausea/Vomiting Last Admin: 04/02/17 15:07 Dose: 4 mg Pantoprazole Sodium (Protonix Iv) 40 mg IVPUSH Q24H [facility] Last Admin: 04/03/17 07:40 Dose: 40 mg Discontinued Medications Furosemide (Lasix) 10 mg IVPUSH ONETIME ONE Stop: 04/03/17 12:16 Last Admin: 04/03/17 12:26 Dose: 10 mg Furosemide (Lasix) 10 mg IVPUSH ONETIME ONE Stop: 04/03/17 15:01 Last Admin: 04/03/17 15:07 Dose: 10 mg Lactated Ringer's (Ringers, Lactated) 1,000 mls @ 500 mls/hr IV ONETIME ONE Stop: 04/02/17 13:14 Last Admin: 04/02/17 11:31 Dose: 500 mls/hr Albumin Human (Albumin 25%) 25 gm in 100 mls @ 25 mls/hr IV Q24H [facility] Stop: 04/06/17 15:59 Last Admin: 04/02/17 13:43 Dose: 25 mls/hr Magnesium Sulfate 2 gm/ Premix 50 mls @ 25 mls/hr IV Q6H [facility] Stop: 04/06/17 05:59 Last Admin: 04/03/17 10:56 Dose: 25 mls/hr Influenza Virus Vaccine (Fluzone Quad 6065-9989) 60 mcg IM .ONCE ONE Stop: 04/02/17 10:01 Last Admin: 04/02/17 15:25 Dose: 60 mcg Iohexol (Omnipaque-300) 50 ml PO . DIRECTED ARACELI Stop: 04/03/17 10:45 Last Admin: 04/03/17 10:02 Dose: 50 ml Pantoprazole Sodium (Protonix Iv) 40 mg IVPUSH Q24H [facility] Last Admin: 04/02/17 03:32 Dose: 40 mg - Exam Quality Assessment: No: Supplemental Oxygen General: Alert, Oriented, Cooperative, No Acute Distress Neck: Supple Lungs: Normal Respiratory Effort GI/Abdominal Exam: Soft, No Distention Extremities: Pedal Edema (Mild bilateral edema) Skin: Warm, Dry Psy/Mental Status: Alert, Normal Affect Consult PN Assessment/Plan Procedures: Procedures ASSAY OF FERRITIN (03/13/17) ASSAY OF MAGNESIUM (03/11/16) ASSAY OF NATRIURETIC PEPTIDE (03/11/16) ASSAY OF PHOSPHORUS (03/11/16) BLOOD TYPING SEROLOGIC ABO (03/11/16) BLOOD TYPING SEROLOGIC RH(D) (03/11/16) COMPLETE CBC AUTOMATED (03/13/17) CULTURE SCREEN ONLY (03/13/17) EGD BIOPSY SINGLE/MULTIPLE (03/13/17) GLUCOSE BLOOD TEST (03/11/16) GLYCOSYLATED HEMOGLOBIN TEST (03/11/16) METABOLIC PANEL TOTAL CA (03/11/16) RBC ANTIBODY SCREEN (03/11/16) ROUTINE VENIPUNCTURE (03/13/17) VITAMIN B-12 (03/13/17) X-RAY UPPER GI DELAY W/O KUB (03/11/16) (1) Nausea SNOMED Code(s): 362356990 Code(s): R11.0 - NAUSEA Current Visit: Yes (2) Hypoalbuminemia due to protein-calorie malnutrition SNOMED Code(s): 580454902 Code(s): E46 - UNSPECIFIED PROTEIN-CALORIE MALNUTRITION Current Visit: Yes (3) CKD (chronic kidney disease) stage 3, GFR 30-59 ml/min SNOMED Code(s): 748106111 Code(s): N18.3 - CHRONIC KIDNEY DISEASE, STAGE 3 (MODERATE) Current Visit: No Problem List Initiated/Reviewed/Updated: Yes Plan: ASSESSMENT AND PLAN Lower extremity edema - suspect low albumin is leading to low oncotic pressure and dependent edema. No cardiac issues based on recent workup and there is no evidence for congestive heart failure based on examination. -Elevate legs, consider compression stockings -Feeding tube planned for tomorrow to help with nutritional status Lactic acidosis - I suspect this is related to hypoperfusion with poor intake and concurrent use of diuretics. Still mildly elevated but better than admission after some fluids. -IV fluids through the night -Repeat labs in the morning -Follow-up urinalysis Persistent nausea - patient reports 3 months of nausea and has had progressive difficulties with oral intake. CT scan did not reveal obvious pathology. No concerning medications on her home list that I can see. Exact cause for the nausea is not entirely clear. Hopefully with hydration this will help. -Symptomatic management -Advance diet as tolerated Stage III chronic kidney disease - creatinine improving with IV fluids and I would expect that it will normalize in the next 24-48 hours. -IV fluids -Labs in the morning Hospitalist service will sign off at this time since the nutritional and metabolic issues are being handled by the surgical team. Please feel free to contact with additional concerns. Cole Bell M.D.
[2017-04-03] MEDS: DULoxetine 30 MG Cap PO SCH (20:57)
[2017-04-03] MEDS ORDERED: MVI, Adult with Vitamin K 10 ML, Thiamine 100 MG, Magnesium Sulfate 2 GM, Folic Acid 1 ... IV ONE ×5 (21:00)
[2017-04-04] MEDS: Metoclopramide 10 MG/2 ML SDV IVPUSH SCH ×2 (05:32→10:30)
[2017-04-04] MEDS ORDERED: Bupivacaine 0.5%/EPINEPHrine 1:200,000 50 ML MDV ONE (06:43)
[2017-04-04] MEDS ORDERED: Rocuronium 50 MG/5 ML Vial ONE (07:44)
[2017-04-04] MEDS ORDERED: Ondansetron 4 MG/2 ML SDV ONE (07:44)
[2017-04-04] MEDS ORDERED: Dexamethasone 4 MG/ML SDV ONE (07:44)
[2017-04-04] MEDS ORDERED: Succinylcholine 200 MG/10 ML MDV ONE (07:44)
[2017-04-04] MEDS ORDERED: Propofol 200 MG/20 ML SDV ONE (07:44)
[2017-04-04] MEDS ORDERED: Glycopyrrolate 0.2 MG/ML 5 ML MDV ONE (07:44)
[2017-04-04] MEDS ORDERED: Neostigmine Methylsulfate 1 MG/ML 5 ML Syringe ONE (07:44)
[2017-04-04] MEDS: Pantoprazole 40 MG Vial IVPUSH SCH (08:38)
[2017-04-04] MEDS ORDERED: Furosemide 40 MG/4 ML VIAL IVPUSH ONE (09:00)
--- NOTE | 2017-04-04 09:12 | PN ---
DATE OF SERVICE: 04/04/2017 SUBJECTIVE: Mattie is n.p.o. She will be having surgery today. LABORATORY DATA: She received 1 unit of packed red blood cells yesterday. Her hemoglobin is 9.2, creatinine is 1.3, calcium is up to 8.1, bilirubin is 2. BNP is 17,326. Protein went from 4.8 to 5.4. Vital signs have been stable with the exception of elevated blood pressure with diastolic 97-109. OBJECTIVE: GENERAL: Mattie Ramirez is a 61-year-old female. She is alert and orientated. VITAL SIGNS: TPR is 99.2, 109, 18, blood pressure 161/101, respirations are 18, pulse by oximetry is 94. She did receive Lasix 40 mg IV and blood pressure was rechecked at 0838 hours and was 161/109. HEENT: Negative. NECK: Supple. HEART: Regular rate and rhythm. LUNGS: Clear. ABDOMEN: Soft. There is tenderness in the upper left quadrant. EXTREMITIES: Revealed 2+ peripheral edema. Grupo wraps are on. She has had her SCDs on. ASSESSMENT: Partial small bowel obstruction, chronic nausea, anasarca, malnutrition, gastritis, anemia. Hemoglobin 7.8. Received 1 unit of packed red blood cells. 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 PLAN: Scheduled for surgery today, orders to be written postoperatively and Lasix 40 mg IV was given at the time of report. Naz Motley PA-C /[id number]
[2017-04-04] MEDS ORDERED: cefOXitin 2 GM in Sodium Chloride 0.9% 50 ML IV ONE (10:00)
[2017-04-04] MEDS ORDERED: Meropenem 500 MG SDV ONE (10:50)
[2017-04-04] MEDS ORDERED: Naloxone 0.4 MG/ML SDV IVPUSH PRN (11:13)
[2017-04-04] MEDS ORDERED: HYDROmorphone/Normal Saline 15 MG/30 ML PCA IV PRN (11:13)
[2017-04-04] MEDS ORDERED: Naloxone 0.4 MG/ML SDV IV PRN (11:16)
[2017-04-04] MEDS: fentaNYL 12 MCG/HR Transdermal Patch TRDERM SCH (11:23)
[2017-04-04] MEDS ORDERED: Ropivacaine 42 ML, Dexamethasone 8 MG, EPINEPHrine 0.4 MG, Sodium Chloride 0.9% 35.6 ML NERVRT SCH ×4 (11:30)
[2017-04-04] MEDS: Levothyroxine 75 MCG Tab PO SCH (11:41)
[2017-04-04] MEDS: buPROPion 150 MG Tab.SR PO SCH (11:41)
[2017-04-04] MEDS ORDERED: Dextrose 5%-Lactated Ringers 1,000 ML IV SCH (14:00)
--- NOTE | 2017-04-04 14:09 | CR ---
Chest 1V Frontal Comparison: 2 days prior. FINDINGS: The left subclavian line descends down into the SVC. The tip is located at the junction of the SVC and right atrium. There has been interval development of density overlying the left heart. Th e finding may reflect a left lower lobe infiltrate or atelectasis. The heart and vascular structures are normal in appearance. Impression: 1. Left subclavian line in good position. 2. Left lower lobe infiltrate and/or atelectasis.
[2017-04-04] MEDS ORDERED: diphenhydrAMINE 50 MG/ML SDV IVPUSH PRN (15:00)
[2017-04-04] MEDS ORDERED: Metoclopramide 10 MG/2 ML SDV IVPUSH PRN (15:00)
[2017-04-04] MEDS ORDERED: hydrOXYzine HCl 100 MG/2 ML SDV IM PRN (15:00)
[2017-04-04] MEDS ORDERED: Labetalol 20 MG/4 ML Syringe IVPUSH PRN (15:00)
[2017-04-04] MEDS ORDERED: Loperamide 1 MG/5 ML ML Solution 120 ML Bottle PO PRN (15:05)
[2017-04-04] MEDS: VERIFY FENTANYL PATCH TOP SCH ×2 (15:50→20:56)
[2017-04-04] MEDS ORDERED: MVI, Adult with Vitamin K 10 ML, Thiamine 200 MG, Chromium/Copper/Mang/Selen/Zn 1 ML in... IV SCH ×4 (16:00)
[2017-04-04] MEDS: cefOXitin 2 GM in Sodium Chloride 0.9% 50 ML IV SCH ×2 (16:10→21:01)
[2017-04-04] MEDS: DULoxetine 30 MG Cap PO SCH (20:57)
[2017-04-05] MEDS: Sodium Chloride 0.9% 10 ML Syringe FLUSH PRN (00:56)
[2017-04-05] MEDS ORDERED: Iohexol 647 MG/ML 50 ML SDV PO SCH (02:45)
[2017-04-05] MEDS: cefOXitin 2 GM in Sodium Chloride 0.9% 50 ML IV SCH ×4 (03:09→22:01)
[2017-04-05] MEDS: Levothyroxine 75 MCG Tab PO SCH (09:03)
[2017-04-05] MEDS: VERIFY FENTANYL PATCH TOP SCH ×2 (09:04→20:43)
[2017-04-05] MEDS: buPROPion 150 MG Tab.SR PO SCH (09:04)
[2017-04-05] MEDS: Levothyroxine 112 MCG Tab PO SCH (09:04)
[2017-04-05] MEDS: Pantoprazole 40 MG Vial IVPUSH SCH (09:05)
[2017-04-05] MEDS: traMADol 50 MG Tab PO PRN ×3 (09:25→19:44)
[2017-04-05] MEDS: Dextrose 5%-Lactated Ringers 1,000 ML IV SCH (13:32)
[2017-04-05] MEDS: MVI, Adult with Vitamin K 10 ML, Thiamine 200 MG, Chromium/Copper/Mang/Selen/Zn 1 ML in... IV SCH ×4 (16:57)
[2017-04-05] MEDS: DULoxetine 30 MG Cap PO SCH (20:43)
[2017-04-06] MEDS: cefOXitin 2 GM in Sodium Chloride 0.9% 50 ML IV SCH ×2 (02:59→09:15)
[2017-04-06] MEDS: Dextrose 5%-Lactated Ringers 1,000 ML IV SCH (02:59)
[2017-04-06] MEDS: Sodium Chloride 0.9% 10 ML Syringe FLUSH PRN ×2 (04:18→04:36)
[2017-04-06] MEDS ORDERED: Acetaminophen 325 MG Tab PO PRN (06:29)
[2017-04-06] MEDS: Pantoprazole 40 MG Vial IVPUSH SCH (08:05)
[2017-04-06] MEDS: Levothyroxine 112 MCG Tab PO SCH (08:06)
[2017-04-06] MEDS: buPROPion 150 MG Tab.SR PO SCH (08:06)
[2017-04-06] MEDS ORDERED: Ondansetron 4 MG Tab.DIS PO PRN (08:10)
[2017-04-06] MEDS ORDERED: Pantoprazole 40 MG Tab.CR PO SCH (08:15)
[2017-04-06] MEDS ORDERED: Cyanocobalamin (Vitamin B12) 1,000 MCG/ML SDV IM ONE (09:00)
[2017-04-06] MEDS: Furosemide 40 MG Tab PO SCH ×2 (09:12→14:52)
[2017-04-06] MEDS: VERIFY FENTANYL PATCH TOP SCH ×2 (09:13→20:55)
--- NOTE | 2017-04-06 10:38 | PN ---
DATE OF SERVICE: 04/06/2017 SUBJECTIVE: Mattie has been up ambulating. She did have a temp max of 100.2 which did go down to normal after she was up ambulating. She has O2 on for oximetries in the high 80s at night when she is sleeping, tolerating the tube feedings well. Oral intake 1050, urine output 1450, and PINKY drain put out 14 mL of a light pink serosanguineous drainage. REVIEW OF SYSTEMS: Remainder of review of systems negative for any pertinent positives and negatives. OBJECTIVE: GENERAL: Mattie Ramirez is a pleasant 61-year-old female. VITAL SIGNS: TPR is 98.9, 104, 18, and blood pressure 154/92. HEENT: Negative. NECK: Supple. HEART: Regular rate and rhythm. LUNGS: Clear. ABDOMEN: Incisions look good. Gastrostomy tube is in place. She is tolerating her feedings well. Abdominal binder has been on. EXTREMITIES: Lower legs are wrapped with Grupo wraps. There is much less peripheral swelling. ASSESSMENT: Partial small bowel obstruction, chronic nausea, anasarca, malnutrition, gastritis, anemia, hemoglobin 7.8, received 1 unit of packed red blood cells, exploratory laparotomy with release of small bowel obstruction, gastrostomy tube insertion, central venous insertion of central venous catheter, gastroscopy for small bowel stricturoplasty x2, malnutrition, inadequate peripheral venous access, and repair of hernia incision x2. PLAN: 1. Continue increasing gastrostomy tube feeding per order. 2. Lasix 40 mg b.i.d. 3. Give 1 unit of packed red blood cells. Check CBC, CMP, mag, and phos in a.m. 4. Lasix 40 mg p.o. b.i.d., Zofran 4 mg ODT q.4 hours p.r.n. nausea, Protonix 40 mg p.o. at bedtime, Wellbutrin 150 mg p.o. b.i.d., Benadryl 50 mg p.o. q.4 hours p.r.n. Discontinue IV Protonix and IV Benadryl. 5. Good pulmonary toilet encouraged. 6. We will evaluate p.r.n. or in a.m. Naz Motley PA-C /[id number]
[2017-04-06] MEDS: traMADol 50 MG Tab PO PRN (11:05)
[2017-04-06] MEDS: MVI, Adult with Vitamin K 10 ML, Thiamine 200 MG, Chromium/Copper/Mang/Selen/Zn 1 ML in... IV SCH ×8 (14:47→15:50)
[2017-04-06] MEDS ORDERED: Zinc Oxide 20% Oint 453.6 GM Jar TOP PRN (16:42)
[2017-04-06] MEDS: buPROPion 100 MG Tab PO SCH (20:54)
[2017-04-06] MEDS: DULoxetine 30 MG Cap PO SCH (20:55)
[2017-04-07] MEDS: Dextrose 5%-Lactated Ringers 1,000 ML IV SCH (01:00)
[2017-04-07] MEDS ORDERED: Zinc Oxide 20% Oint 56.7 GM Tube TOP PRN (08:17)
[2017-04-07] MEDS: Pantoprazole 40 MG Tab.CR PO SCH (08:21)
[2017-04-07] MEDS: Levothyroxine 112 MCG Tab PO SCH (08:21)
[2017-04-07] MEDS: buPROPion 100 MG Tab PO SCH ×2 (08:21→21:03)
[2017-04-07] MEDS: Furosemide 40 MG Tab PO SCH ×2 (08:21→14:20)
[2017-04-07] MEDS: VERIFY FENTANYL PATCH TOP SCH ×2 (08:22→21:02)
[2017-04-07] MEDS: Potassium Chloride 20 MEQ in Premix Bag 1 BAG IV SCH ×3 (08:23→15:43)
--- NOTE | 2017-04-07 08:26 | PN ---
DATE OF SERVICE: 04/05/2017 SUBJECTIVE: Mattie is postoperative day #1. Her vital signs have been stable with the exception that she has some tachycardia when she had her upper GI this morning. She remains to have a Baxter catheter in. Output has been adequate. She has been up and ambulating. Oral intake is 90. Output via Baxter catheter is 1450. PINKY drain put out 10 mL of a light pink serosanguineous drainage. OBJECTIVE: GENERAL: Mattie Ramirez is a 61-year-old female. She is alert and orientated. SKIN: Warm and dry. Color pale. VITAL SIGNS: TPR is 99.1, pulse 82, respirations 18, and blood pressure 153/95. It was rechecked at 122/79. Her blood pressure also was high during the night. But when she straightened out her arm, it rechecked and normal. HEENT: Negative. NECK: Supple. HEART: Regular rate and rhythm. LUNGS: Clear. ABDOMEN: Dressing is dry and intact. Abdominal binder is on. Gastrostomy tube is on to gravity and draining a green drainage. EXTREMITIES: Revealed trace peripheral edema. SCDs are on. ASSESSMENT: Exploratory laparotomy with release of small bowel, strictureplasty x2, gastrostomy tube insertion, central venous catheter insertion, esophagogastroduodenoscopy, hernia repair x2 under general anesthesia, date of surgery on 04/04/2017. PLAN: 1. To start gastrostomy tube feedings. 2. DC Baxter catheter. 3. Step-2 without cereal gastric bypass diet. 4. Discontinue [employer] and continuous pulse ox. 5. Tramadol 50 mg q.4 hours p.r.n. pain. 6. Decrease IV D5 LR to 100 mL per hour. 7. Communication order for 3 med cups per hour or q. 20 minutes. 8. Check CBC, CMP, mag phos, and BNP tomorrow. 9. Increase levothyroxine to 112 mcg mg p.o. daily. 10.We will evaluate p.r.n. or in a.m. 11.Good pulmonary toilet encouraged. Naz Motley PA-C /[id number]
--- NOTE | 2017-04-07 08:47 | CR ---
UGI wo KUB HISTORY: eVAL rny GBP FINDINGS: Limited upper GI series was obtained without fluoroscopy. Water-soluble contrast was admini stered orally. Immediate along with 15 minute delayed images were obtained. Small gastric pouch is de monstrated. Contrast passes readily through the gastrojejunostomy into loops of jejunum. No obstructi on is identified. There is no contrast extravasation. Residual contrast is seen in the colon from exa m of 04/03/2017. There has been interval surgery. Midline skin saravanan are noted. Free intraperitonea l air is probably consistent with the postoperative state. There are linear interstitial changes left lung base suggesting atelectasis. IMPRESSION: 1. No postoperative complication identified status post Maikol-en-Y gastric bypass. 2. Free air in the abdomen is probably consistent with postoperative state. 3. There is residual contrast in the colon from limited upper GI study of 2 days prior.
[2017-04-07] MEDS ORDERED: Potassium Chloride 20 MEQ, Lidocaine 1% 2 ML in Sodium Chloride 0.9% 100 ML IV SCH (09:00)
--- NOTE | 2017-04-07 09:08 | PN ---
DATE OF SERVICE: 04/07/2017 SUBJECTIVE: It [birth year]'s birthday today. She reports she is feeling much better. She has been up ambulating. Vital signs have been stable. She does consistently run temps in the 99s. Pain is controlled. Labs read she did have 1 unit of packed red blood cells yesterday for hemoglobin of 7.3, it is 8.3 this morning, potassium is 3.5, total bilirubin is 1.4, and albumin has increased to 3.4. She is tolerating her tube feedings well orally, she is on step-2 gastric bypass diet, has had 1060 in, urine output 4800, and PINKY drain put out 10 mL of a pink serosanguineous drainage. REVIEW OF SYSTEMS: Remainder of review of systems negative for any pertinent positives and negatives. OBJECTIVE: GENERAL: Mattie Ramirez is a pleasant 62-year-old female. She is alert and orientated. SKIN: Warm and dry. Color is less pale. VITAL SIGNS: TPR is 99.8, 116, 17, blood pressure 171/99. HEENT: Negative. NECK: Supple. HEART: Regular rate and rhythm. LUNGS: Clear. ABDOMEN: Incision looks good. PINKY drain and gastrostomy tube intact. Abdominal binder has been on. EXTREMITIES: Revealed 1+ peripheral edema. They are Grupo wrapped and they are much improved. ASSESSMENT: 1. Exploratory laparotomy with release of small bowel obstruction, gastrostomy tube insertion, central venous insertion of central venous catheter, gastroscopy for small bowel stricturoplasty x2, malnutrition, inadequate peripheral vein access and repair of hernia incision x2, done date of surgery 02/02/2017, Mikey Logan MD. 2. Gastrostomy tube feedings for malnutrition. 3. Anemia requiring 2 units total of packed red blood cells during hospitalization. 4. Anasarca. 5. Gastritis. 6. Status post revision Maikol-en-Y gastric bypass surgery. PLAN: 1. Step 3 gastric bypass diet, she is a new start. Check CBC, CMP, magnesium, phos, and BNP in a.m. Type and crossmatch 2 units of packed red blood cells. 2. Give 1 unit of packed red blood cells today. 3. KCl 20 mEq with lidocaine in 3 divided doses. 4. Convert central line to heparin lock. 5. Good pulmonary toilet. 6. We will evaluate p.r.n. or in a.drea Motley PA-C /[id number]
[2017-04-07] MEDS: fentaNYL 12 MCG/HR Transdermal Patch TRDERM SCH (13:42)
--- NOTE | 2017-04-07 17:59 | OR ---
DATE OF PROCEDURE: 04/04/2017 PREOPERATIVE DIAGNOSES: 1. Limited peripheral venous access. 2. Partial small bowel obstruction, secondary to probable obstruction at jejujejunostomy. 3. Malnutrition. 4. History of recent pouch gastritis. POSTOPERATIVE DIAGNOSIS: 1. Limited peripheral venous access. 2. Partial small bowel obstruction, secondary to obstruction jejujejunostomy. 3. Two separate small bowel structures. 4. Malnutrition. 5. Multifocal incisional hernia. 6. Fungal esophagitis. OPERATIVE PROCEDURE: 1. Insertion of left subclavian vein triple lumen catheter (07125). 2. Upper GI endoscopy with biopsy of gastric pouch for TEO test (40277). 3. Exploratory laparotomy with: a. Revision of jeju-jejunostomy component of Maikol-en-Y gastric bypass ( 26756). b. Small bowel stricturoplasty in midportion of Maikol limb (11669). c. Small bowel stricturoplasty in midportion of common limb (13985). d. Placement of tube gastrostomy (78893). e. Repair of recurrent incarcerated multifocal incisional hernia (43099) . ANESTHESIA: General. BLACK OXIDE COATING EQUIPMENT TENDER: ANTON Cifuentes INDICATION FOR PROCEDURE: This is a 61-year-old female, presenting with quite severe malnutrition, status post previous revisional procedure, creating a fairly distal Maikol limb. She also has, at this point, limited peripheral venous access and a history of pouch gastritis recently seen at endoscopy. Additionally, the patient has what appears to be a degree of small bowel obstruction, based on her CT scan, most likely at level of the jeju- jejunostomy. The plan is to proceed with an initial central line insertion, along with upper endoscopy for followup of the pouch gastritis, followed by open laparotomy, with revision of the jejujejunostomy to a more proximal configuration, and placement of gastrostomy tube to facilitate enteral feedings. The potential risks of all of these procedures were all reviewed, including bleeding, infection, injuring the viscera or lung, or vasculature in the case of the central line insertion, possibility of leaks from various GI tract closures, further bowel obstruction, as well as possibility of cardiopulmonary, septic, or hemorrhagic complication leading to were discussed, and the patient wishes to proceed. DETAILS OF PROCEDURE: The patient was taken to the operating room and placed in the supine position. After general endotracheal anesthesia was induced, initially the upper GI endoscope was passed orally through the length of esophagus and into the gastric pouch, from there through the gastrojejunostomy roughly 20 cm into the Maikol limb. At this point, the pouch gastritis was largely gone. There was some scattered fungal overgrowth within the distal esophagus, but overall, the upper GI findings appeared to satisfactory at this time, with a normally sized pouch and gastrojejunostomy present. The upper chest and neck areas were then prepped and draped, and using standard technique, a subclavian vein triple-lumen catheter was placed. Good in and outflow was noted in all ports, and it was flushed with heparinized saline, sutured the skin with some 3-0 silk stitch, and dressing was required. Subsequent chest x-ray showed intact catheter position without complication. Baxtre catheter at that point had been inserted, and the abdomen was prepped and draped. A midline incision from the xiphoid to just above umbilicus was made and carried down through the skin and subcutaneous tissue. During the course of the dissection, two sites of incarcerated hernia were seen, both containing some omentum and preperitoneal fat, one in the midportion of the previous upper midline incision and one in the inferiormost aspect. The hernia tissue was sequentially dissected free and sent as pathologic specimen. At that point, general exploration was undertaken, and the patient was noted to have a markedly dilated Maikol limb with the point of high grade partial obstruction being at a strictured location at a point where the Maikol limb entered the jejujejunostomy. This area was going to be reduced in either case and revised. Given this, at this point, the three components of Maikol limb were then divided with HECTOR crespo loads, the underlying mesentry divided as well, and that specimen delivered from the field. The patient, at this point, had a very short common limb and what we then did was anastomose what had been the distal end of the biliopancreatic limb to what had been the proximal end of the common limb, and this would move up the anastomosis between the Maikol limb and that length of bowel to a point only around 50 cm distal to the ligament of Treitz. This gave the patient a Maikol limb length of 80, a biliopancreatic limb length of around 50, and a common limb length was then measured out at being a 320 cm. Both of the anastomoses were accomplished with internal firings of the HECTOR vascular loads, followed by transverse closure with the purple loads, angles anastomosed, and the mesenteric defects were in each case approximated with 3-0 Vicryl stitch, along with some silk stitch for the major mesenteric defects. During the course of dissection, two sites of stricture were seen, one was in the midportion of Maikol limb and one in the more or less the midportion of the common limb. In each case the bowel was opened on the antimesenteric border to the point of stricture, a HECTOR crespo load inserted into one arm of the bowel on each side of the stapler, and the internal connection created. The common opening was closed with 3-0 Vicryl stitch, the angles of anastomosis were reinforced with some 3-0 stitch as well, and no mesenteric defect in this case was present. At this point, attention was taken to the tube gastrostomy. In the mid left subcostal area, a stab wound was made, and an 18-[place] Baxter catheter was pulled through the abdominal wall. The greater curvature of the midportion of the bypassed stomach was then isolated and a gastrotomy made around this and a pursestring stitch using 2-0 Vicryl stitch was placed. The balloon part of the catheter was inserted into the stomach and inflated with 10 mL of saline. The pursestring stitch was then drawn up and tied. This stitch was then used initially to fix the gastrostomy to the abdominal wall. Three additional sutures to the stomach adjacent to the gastrotomy site in the abdominal wall, which included some omentum as well, were then made with 2-0 Vicryl stitch. At that point, no further problems were noted. The abdomen was irrigated with meropenem-containing saline solution. No intraabdominal drains were placed. Prior to closure bilateral transversus abdominis plane blocks were placed from inside of the abdomen, i.e. inserting these just underneath the peritoneal cavity in the subcostal areas bilaterally, which would correspond to the transversus abdominis plane. The usual solution was used on each side. The midline fascia was then approximated. This included repair of the recurrent hernias. The subcutaneous tissue was then drained with a 10-[place] round Wyatt-Schuster drain , which was brought through a stab wound just inferior to the main incision and the skin then closed with saravanan. Dressing was applied. The patient was taken to the recovery room in satisfactory condition. Physician assistant drafter, Naz Motley, played an essential role in assisting in this case, helping to position the patient, retract structures as needed, as well as suturing and cutting sutures when indicated. Her presence improved patient safety and decreased operative time. Mikey Logan MD DT: 04/07/2017 16:20:36 /[id number] MTDD
[2017-04-07] MEDS: DULoxetine 30 MG Cap PO SCH (21:03)
[2017-04-07] MEDS: traMADol 50 MG Tab PO PRN (22:57)
[2017-04-08] MEDS: Sodium Chloride 0.9% 10 ML Syringe FLUSH PRN (04:15)
[2017-04-08] MEDS ORDERED: Magnesium Sulfate/Water 2 GM in Premix Bag 1 BAG IV SCH (07:15)
[2017-04-08] MEDS: Levothyroxine 112 MCG Tab PO SCH (07:42)
[2017-04-08] MEDS: Pantoprazole 40 MG Tab.CR PO SCH (07:42)
[2017-04-08] MEDS: buPROPion 100 MG Tab PO SCH ×2 (09:24→21:52)
[2017-04-08] MEDS: Magnesium Sulfate/Water 2 GM in Premix Bag 1 BAG IV SCH ×3 (09:24→21:51)
[2017-04-08] MEDS: Furosemide 40 MG Tab PO SCH ×2 (09:25→14:17)
[2017-04-08] MEDS: VERIFY FENTANYL PATCH TOP SCH ×2 (09:25→21:10)
--- NOTE | 2017-04-08 10:46 | PN ---
DATE OF SERVICE: 04/08/2017 SUBJECTIVE: Mattie had one unit of packed red blood cells today, and hemoglobin is up to 9.9. Potassium is 3.6, GFR is greater than 60, phosphorus is 2.3, magnesium is 1.5, bilirubin is 1.5, BNP is 6346, and albumin is 3. Pain is controlled. She has been up several times to have a bowel movement or urinate during the night. She reports that she has been walking to the end of the quinn and back. REVIEW OF SYSTEMS: Remainder of review of systems was negative for any pertinent positives and negatives. Mr. Yovany Ramirez was here, stating family was concerned because she cannot hold a conversation, is confused, and cannot walk. OBJECTIVE: GENERAL: Mattie is a 62-year-old female. She is alert and orientated this morning. VITAL SIGNS: TPR is 99.1, 103, 20, and blood pressure is 142/89. HEENT: Negative. NECK: Supple. HEART: Regular rate and rhythm. LUNGS: Clear. ABDOMEN: Incision saravanan are intact. The incision is healing well. PINKY drain put out 5 mL of a light serosanguineous drainage. Gastrostomy tube is in place and is infusing without difficulty. Abdominal binder has been on. EXTREMITIES: Revealed 1+ peripheral edema. ASSESSMENT: 1. Insertion of left subclavian vein triple lumen catheter. 2. Upper GI endoscopy with biopsy of gastric pouch for CLOtest. 3. Exploratory laparotomy: A. Revision of jejunostomy component of the Maikol-en-Y gastric bypass surgery. B. Small bowel stricturoplasty in the portion of the Maikol limb. C. Small bowel stricturoplasty in midportion of the common limb. D. Placement of tube gastrostomy. E. Repair of recurrent incarcerated multifocal incisional hernia. Date of surgery was 04/04/2017. 4. Malnutrition. 5. Chronic kidney disease, resolving. 6. Severe peripheral edema, resolving. PLAN: 1. K-Phos 60 millimoles IV today. 2. Discontinue fentanyl patch. 3. Magnesium 2 g IV q.6 hours x72 hours. 4. Check CBC, CMP, phos, and BNP in a.m. 5. Physical Therapy and Occupational Therapy evaluate and treat. 6. Good pulmonary toilet. 7. We will evaluate in a.m. or p.r.n. Naz Motley, PA-C /[id number]
[2017-04-08] MEDS: Potassium Phosphates 20 MMOLE in Sodium Chloride 0.9% 250 ML IV SCH ×3 (11:24→18:14)
--- NOTE | 2017-04-08 17:46 | PCM.CONS ---
H&P History of Present Illness - General Date of Service: 04/08/17 Admit Problem/Dx: Source of Information: Patient, Provider, RN Notes Reviewed History Limitations: Reports: No Limitations - History of Present Illness Initial Comments - Free Text/Narative: This patient is a 62-year-old woman who I been asked to see by Naz Motley for evaluation of possible focal weakness and cognitive impairment. She has a history of previous Maikol-en-Y gastric bypass surgery and over the past few months has had ongoing difficulty with abdominal pain, nausea, poor oral intake , and progressive weakness. She was admitted to this facility last week and on evaluation was found to have evidence of bowel obstruction. She was taken to surgery [address] Logan. Since then she has had no further nausea and her oral intake is improving. Feeding tube was also placed at that time and she is receiving tube feedings at night. Despite the relatively short period of time since surgery she has felt improved and feels like she is regaining some strength. There was concern this morning that she was having difficulty with fine motor skills as well as weakness in her lower extremities. Family has expressed concerns related to cognitive impairment and poor memory. Abdomen Pain Score (Numeric/FACES): 2 - Related Data Allergies/Adverse Reactions: Allergies Allergy/AdvReac Type Severity Reaction Status Date / Time latex Allergy Hives Verified 04/04/17 08:37 Benzodiazepines AdvReac Other Verified 03/13/17 11:02 Home Medications: Home Meds Cyanocobalamin (Vitamin B-12) [Vitamin B-12] 1,000 mcg SL DAILY 09/22/15 [ History] tiZANidine [Zanaflex] 4 mg PO DAILY PRN 09/22/15 [History] DULoxetine [Cymbalta] 120 mg PO BEDTIME 03/08/16 [History] Multivitamin W/Iron, Minerals [Flintstones Complete] 1 each PO BID #100 tab.chew 03/13/16 [Rx] Ondansetron [Zofran ODT] 4 mg PO Q6H PRN #30 tab.dis 03/13/16 [Rx] Cholecalciferol (Vitamin D3) [Cholecalciferol] 2,000 units PO DAILY 03/12/17 [ History] Cholecalciferol (Vitamin D3) [Vitamin D3] 50,000 unit PO WEEKLY 03/12/17 [ History] Furosemide [Lasix] 40 mg PO BID 03/12/17 [History] Levothyroxine Sodium [Synthroid] 75 mcg PO DAILY 03/12/17 [History] Thiamine HCl [Vitamin B-1] 100 mg PO DAILY 03/12/17 [History] buPROPion HCl [Wellbutrin SR] 150 mg PO DAILY 03/12/17 [History] Past Medical History HEENT History: Reports: Impaired Vision Cardiovascular History: Reports: Hypertension, Other (See Below) Other Cardiovascular History: leg edema Respiratory History: Reports: Pneumonia, Recurrent Gastrointestinal History: Reports: Cholelithiasis, Chronic Diarrhea, Hemorrhoids Genitourinary History: Reports: Renal Calculus, UTI, Recurrent INTERNATIONAL MANAGER History: Reports: Musculoskeletal History: Reports: Back Pain, Chronic, Fracture, Other (See Below ) Other Musculoskeletal History: right ankle with pins and screws Neurological History: Reports: Concussion, Neuropathy, Peripheral Other Neuro History: left leg Psychiatric History: Reports: Anxiety, Depression, Mood Swings, Panic Attack Endocrine/Metabolic History: Reports: Diabetes, Type II, Obesity/BMI 30+, Vitamin D Deficiency Hematologic History: Reports: Anemia, B12 Deficiency, Iron Deficiency, Other ( See Below) Other Hematologic History: iron infusions - Infectious Disease History Infectious Disease History: Reports: Herpes, Measles, Mumps - Past Surgical History Head Surgeries/Procedures: Reports: None GI Surgical History: Reports: Bariatric Procedure, Cholecystectomy, Colonoscopy , Other (See Below) Other GI Surgeries/Procedures: revision RNY Female Surgical History: Reports: Lithotripsy/ESWL, Tubal Ligation Neurological Surgical History: Reports: Other (See Below) Other Neurological Surgeries/Procedures: back surgery x 2. Musculoskeletal Surgical History: Reports: Other (See Below) Other Musculoskeletal Surgeries/Procedures:: right ankle Social & Family History - Family History Family Medical History: Noncontributory - Tobacco Use Smoking Status *Q: Never Smoker Second Hand Smoke Exposure: No - Caffeine Use Caffeine Use: Reports: None - Recreational Drug Use Recreational Drug Use: No H&P Review of Systems - Review of Systems: Review Of Systems: See Below General: Reports: Weakness. Denies: Fever, Chills, Diaphoresis HEENT: Reports: No Symptoms Pulmonary: Reports: No Symptoms Cardiovascular: Reports: No Symptoms Gastrointestinal: Reports: Abdominal Pain. Denies: Difficulty Swallowing, Distension, Hematemesis, Hematochezia, Melena, Nausea, Vomiting Genitourinary: Reports: No Symptoms Musculoskeletal: Reports: Other (Generalized weakness) Skin: Reports: No Symptoms Psychiatric: Reports: No Symptoms Neurological: Reports: Weakness. Denies: Dizziness, Headache, Numbness, Paresthesia, Trouble Speaking, Change in Speech Hematologic/Lymphatic: Reports: No Symptoms Immunologic: Reports: No Symptoms Exam - Exam Exam: See Below - Vital Signs Vital Signs: Last Vital Signs Temp 97.7 F 04/08/17 11:47 Pulse 105 H 04/08/17 15:00 Resp 16 04/08/17 15:00 BP 128/82 04/08/17 15:00 Pulse Ox 96 04/08/17 15:00 Weight: 188 lb 4.8 oz - Exam General: Alert, Oriented, Cooperative HEENT: PERRLA, Conjunctiva Clear, Hearing Intact, Mucosa Moist & [place], Normal Nasal Septum, Posterior Pharynx Clear, Pupils Equal, Pupils Reactive Neck: Supple, Trachea Midline, +2 Carotid Pulse wo Bruit Lungs: Clear to Auscultation, Normal Respiratory Effort Cardiovascular: Regular Rate, Regular Rhythm, Normal S1, Normal S2. No: Systolic Murmur, Diastolic Murmur GI/Abdominal Exam: Normal Bowel Sounds, Soft, No Organomegaly, Tender. No: Distended, Guarding, Rigid, Rebound Back Exam: Normal Inspection, Full Range of Motion Extremities: Normal Inspection, Non-Tender, No Pedal Edema Skin: Warm, Dry Neurological: Cranial Nerves Intact, Strength Equal Bilateral, Normal Speech, Normal Tone, Sensation Intact. No: Focal Deficit Neuro Extensive - Mental Status: Alert, Oriented x3, Normal Mood/Affect, Normal Cognition, Memory Loss-Recent Events (Mild) - Patient Data Lab Results Last 24 hrs: Laboratory Results - last 24 hr 04/08/17 04/08/17 Range/Units 04:30 04:30 WBC 6.9 (4.5-11.0) K/uL RBC 3.34 (3.30-5.50) M/uL Hgb 9.9 L (12.0-15.0) g/dL Hct 31.7 L (36.0-48.0) % MCV 95 (80-98) fL MCH 30 (27-31) pg MCHC 31 L (32-36) % Plt Count 201 (150-400) K/uL Sodium 140 (140-148) mmol/L Potassium 3.6 (3.6-5.2) mmol/L Chloride 101 (100-108) mmol/L Carbon Dioxide 35 H (21-32) mmol/L Anion Gap 7.6 (5.0-14.0) mmol/L BUN 12 (7-18) mg/dL Creatinine 0.9 (0.6-1.0) mg/dL Est Cr Clr Drug Dosing 61.41 mL/min Estimated GFR (MDRD) > 60 (>60) Glucose 100 (74-106) mg/dL Calcium 8.5 (8.5-10.1) mg/dL Phosphorus 2.3 L (2.5-4.9) mg/dL Magnesium 1.5 L (1.8-2.4) mg/dL Total Bilirubin 1.5 H (0.2-1.0) mg/dL AST 14 L (15-37) U/L ALT 20 (12-78) U/L Alkaline Phosphatase 74 (46-116) U/L NT-Pro-B Natriuret Pep 6346 H (5-125) pg/mL Total Protein 5.4 L (6.4-8.2) g/dL Albumin 3.0 L (3.4-5.0) g/dL Globulin 2.4 (2.3-3.5) g/dL Albumin/Globulin Ratio 1.3 (1.2-2.2) Result Diagrams: 04/08/17 04:30 04/08/17 04:30 Consult PN Assessment/Plan Procedures: Procedures ASSAY OF FERRITIN (03/13/17) ASSAY OF MAGNESIUM (03/11/16) ASSAY OF NATRIURETIC PEPTIDE (03/11/16) ASSAY OF PHOSPHORUS (03/11/16) BLOOD TYPING SEROLOGIC ABO (03/11/16) BLOOD TYPING SEROLOGIC RH(D) (03/11/16) COMPLETE CBC AUTOMATED (03/13/17) CULTURE SCREEN ONLY (03/13/17) EGD BIOPSY SINGLE/MULTIPLE (03/13/17) GLUCOSE BLOOD TEST (03/11/16) GLYCOSYLATED HEMOGLOBIN TEST (03/11/16) METABOLIC PANEL TOTAL CA (03/11/16) RBC ANTIBODY SCREEN (03/11/16) ROUTINE VENIPUNCTURE (03/13/17) VITAMIN B-12 (03/13/17) X-RAY UPPER GI DELAY W/O KUB (03/11/16) Problem List Initiated/Reviewed/Updated: Yes Plan: ASSESSMENT AND RECOMMENDATIONS POSSIBLE COGNITIVE IMPAIRMENT-family is given history of possible memory impairment. On evaluation today she did very well on Mini-Mental status exam and is alert and oriented. There is possible mild short-term memory impairment on my evaluation. -Continue to monitor and if after nutrition has improved she continues to have some mild difficulty consider neuropsychiatric evaluation WEAKNESS-on motor strength testing she has mild to moderate diffuse weakness but no focal abnormalities. Cranial nerves are intact and I find no obvious sensory abnormalities. I expect that current findings are secondary to her recent malnutrition and inactivity. Would expect that if she regains strength many of these mild to moderate abnormalities should resolve. -No further evaluation indicated at this time Requesting Provider: Naz Motley Date Consult Requested: 04/08/17 Reason for Consult: Focal weakness, cognitive impairment Patient History Reviewed: Yes Admission H&P Reviewed: Yes Notified Requestor: Yes
[2017-04-08] MEDS: Loperamide 2 MG Cap PO PRN (21:51)
[2017-04-08] MEDS: DULoxetine 30 MG Cap PO SCH (21:53)
[2017-04-08] MEDS: traMADol 50 MG Tab PO PRN (21:57)
[2017-04-09] MEDS: diphenhydrAMINE 25 MG Cap PO PRN ×3 (00:41→20:24)
[2017-04-09] MEDS: Magnesium Sulfate/Water 2 GM in Premix Bag 1 BAG IV SCH (03:04)
--- NOTE | 2017-04-09 07:37 | PN ---
DATE OF SERVICE: 04/09/2017 SUBJECTIVE: Mattie's vital signs have been stable. She had 1 stool during the night. She did receive Imodium. Temp max 99.4. She had been up ambulating on legs due to decreased swelling. Skin has been peeling and itchy. She received Benadryl. She had a chicken breast last evening for dinner, oral intake recorded was 440, but it sounds like she had more to eat and drink than that, breakfast consumed was 25%, nothing was recorded for lunch, dinner was 60%. She reports pain is controlled, tolerated the gastrostomy tube feedings for 12 hours during the night. REVIEW OF SYSTEMS: Remainder of review of systems negative for any pertinent positives and negatives. LABORATORY DATA: Hemoglobin 9.2. Calcium was 8.4, creatinine 0.9. GFR is 61.41. Albumin is 2.7 and total protein is 5.1. OBJECTIVE: GENERAL: Mattie is a 62-year-old female. She is alert and oriented. VITAL SIGNS: TPR is 99.4, 103, 18. Blood pressure is 103/82. HEENT: Negative. NECK: Supple. HEART: Regular rate and rhythm. LUNGS: Clear. ABDOMEN: Demian in place. Incision looks good. PINKY drain is intact and put out 10 mL of a scant amount of pink serosanguineous drainage. Abdominal binder has been on. EXTREMITIES: Revealed trace peripheral edema. SKIN: Remains pink and shiny. ASSESSMENT: 1. Insertion of left subclavian vein triple-lumen catheter. 2. Upper GI with biopsy of gastric pouch for CLOtest. 3. Exploratory laparotomy. a. Revision of jejunostomy component of the Maikol-en-Y gastric bypass. b. Small-bowel strictureplasty at the portion of the Maikol limb. c. Small-bowel strictureplasty in mid portion of the common limb. d. Placement of tube gastrostomy. e. Repair of recurrent incarcerated multifocal hernia. Date of surgery 04/04/2017. 4. Malnutrition. 5. Chronic kidney disease. 6. Severe peripheral edema, resolving. PLAN: 1. Continue nighttime gastrostomy tube feedings 12 hours. 2. Legs should be [place] wrapped at all times with SCDs on when bed. 3. Walk at least 6 times daily in the quinn. 4. Accurate intake and output. 5. Discharge care conference today with production planner scheduler and family. Pending discharge plans may be ready for discharge in the next day or two. We will evaluate p.r.n. or in a.m. Naz Motley PA-C /[id number]
[2017-04-09] MEDS: traMADol 50 MG Tab PO PRN ×2 (08:01→20:24)
[2017-04-09] MEDS: Levothyroxine 112 MCG Tab PO SCH (08:05)
[2017-04-09] MEDS: Furosemide 40 MG Tab PO SCH ×2 (08:06→13:52)
[2017-04-09] MEDS: Pantoprazole 40 MG Tab.CR PO SCH (08:09)
[2017-04-09] MEDS: buPROPion 100 MG Tab PO SCH (09:13)
[2017-04-09] MEDS: Loperamide 2 MG Cap PO PRN (09:14)
[2017-04-09] MEDS: DULoxetine 30 MG Cap PO SCH (20:25)
[2017-04-10] MEDS: diphenhydrAMINE 25 MG Cap PO PRN ×2 (03:30→20:24)
[2017-04-10] MEDS: traMADol 50 MG Tab PO PRN ×3 (03:30→20:24)
[2017-04-10] MEDS: Levothyroxine 112 MCG Tab PO SCH (07:43)
[2017-04-10] MEDS: Pantoprazole 40 MG Tab.CR PO SCH (07:44)
[2017-04-10] MEDS: Furosemide 40 MG Tab PO SCH ×2 (07:44→14:13)
--- NOTE | 2017-04-10 08:15 | PN ---
DATE OF SERVICE: 04/10/2017 SUBJECTIVE: Mattie is feeling better. Pain is controlled. She is more active and alert. Temp max of 99. Less swelling in her lower extremities. Labs this morning; hemoglobin is 9.9, GFR is 56, and creatinine is 1. Magnesium is being replaced. Her BNP is 4254. She has no questions or concerns today. TPN is running from 8 p.m. to 8 a.m. without any difficulty. OBJECTIVE: GENERAL: Mattie Ramirez is a 62-year-old female. VITAL SIGNS: TPR is 99, 106, 18, and blood pressure 144/96. HEENT: Negative. NECK: Supple. HEART: Regular rate and rhythm. LUNGS: Clear. ABDOMEN: [place] intact. Incision looks good. PINKY drain is a midline and put out 5 mL of a light pink serosanguineous drainage. Abdominal binder has been on. EXTREMITIES: With trace peripheral edema. Oral intake was 1040. Urine output was 2300. She ate 10% of breakfast, 40% of lunch, and 50% of dinner. She ambulated at least 6 times in quinn. ASSESSMENT: 1. Insertion of left subclavian triple-lumen catheter. 2. Upper GI with biopsies of gastric pouch for CLOtest. 3. Exploratory laparotomy;. a. Revision of jejunostomy component of the Maikol-en-Y gastric bypass. b. Small bowel stricturoplasty of the portion of the Maikol limb. c. Small bowel stricturoplasty in the midportion of the common limb. d. Placement of tube gastrostomy. e. Repair of recurrent incarcerated multifocal hernia, date of surgery 04/04/2017. 4. Malnutrition. 5. Chronic kidney disease. 6. Severe peripheral edema, resolving. PLAN: 1. [place]. 2. The patient to be discharged when shelter placement is established. 3. Good pulmonary toilet encouraged. 4. We will evaluate p.r.n. or in a.m. Naz Motley PA-C /[id number]
--- NOTE | 2017-04-10 12:53 | PN ---
DATE OF SERVICE: 04/10/2017 Mattie Ramirez's daughter, Tata, was called in regard to specific questions she had left on a sheet of paper regarding some major concerns on long-term goals. Tata was called around 0730 hours. Her major concerns with her mom right now are her eating, her gastrostomy tube, and discussion regarding that protein levels were down and hemoglobin was low due to unspecified surgical malabsorption following a revision of the Maikol-en-Y gastric bypass surgery. Without adequate protein intake, the patient was not able to eat, due to nausea and vomiting, because of a small bowel obstruction. Albumin got low, hemoglobin was low, in addition to chronic kidney disease, stage 3, and her elevated BNP. She needs to be on the nutrition through her gastrostomy tube for an undetermined length of time. Family is also concerned about depression and history of benzodiazepine and opioid addiction. She also had questions in regard to when she will go back to being on a "normal person's healthy diet." Discussion regarding that, after Maikol-en-Y gastric bypass surgery, she needs to obtain 65 grams of protein. We recommend no alcohol, caffeine, or carbonation. Tata proceeds to say that Mattie does wake up in the morning, and she starts drinking Diet Coke and drinks it until she goes to bed at night. This will be addressed with dietary education and nursing education as well. [facility] staff was unaware of her carbonation consumption. Plan is to go to a rehab facility for 100 days or less for gastrostomy tube feedings 12 hours via pump at night for unspecified surgical malabsorption secondary to revision of the jejunostomy component of the Maikol-en-Y gastric bypass surgery. Naz Motley PA-C /[id number]
[2017-04-10] MEDS: DULoxetine 30 MG Cap PO SCH (20:50)
[2017-04-11] MEDS: Furosemide 40 MG Tab PO SCH (07:12)
[2017-04-11] MEDS: Levothyroxine 112 MCG Tab PO SCH (07:12)
[2017-04-11] MEDS: Pantoprazole 40 MG Tab.CR PO SCH (07:13)
--- NOTE | 2017-04-11 10:28 | DISCH ---
ADMISSION DIAGNOSES: Partial small bowel obstruction, nausea, vomiting, hypoalbuminemia, low hemoglobin, marked peripheral edema due to malnutrition, chronic kidney disease type 2, anxiety and depression, diabetes type 2, vitamin D deficiency, revision of Maikol-en-Y gastric bypass surgery, unspecified surgical malabsorption, B12 deficiency, and iron deficiency anemia. DISCHARGE DIAGNOSES: 1. Insertion of left subclavian triple-lumen catheter. 2. Upper GI with biopsies of gastric pouch for CLOtest. 3. Exploratory laparotomy. a. Revision of jejunostomy component of the Maikol-en-Y gastric bypass. b. Small bowel strictureplasty of a portion of the small bowel. c. Small bowel strictureplasty in the mid portion of the common limb. d. Placement of tube gastrostomy. e. Repair of recurrent incarcerated multifocal hernia. Date of surgery 04/04/2017. 4. Unspecified surgical malabsorption. 5. Chronic kidney disease. 6. Hypoalbuminemia. 7. Severe peripheral edema. 8. Gastritis. 9. Anxiety and depression. 10.Iron deficiency anemia, hemoglobin of 7.3, requiring 3 units of packed red blood cells. 11.B12 deficiency. HISTORY: Mattie Ramirez is a 62-year-old female, who presented with quite severe malnutrition, status post previous revisional procedure creating a fairly distal Maikol limb. She also had limited peripheral venous access and history of gastritis recently seen on endoscopy. A recent CT scan showed a small bowel obstruction, and after preoperative evaluation and discussion of possible risks and possible complications, she wished to proceed with surgical procedure with placement of tube gastrostomy for supplemental nutrition. HOSPITAL COURSE: Mattie had her surgery on 04/04/2017. She had no operative complications. On postop day #1, she was started on her gastrostomy tube feeding, also a step-2 gastric bypass diet and changed over to oral pain medication. On postop day #2, her gastrostomy tube feedings were going very well. She received 1 unit of packed red blood cells for a hemoglobin of 7.3. On 04/07, she was started on a step-3 gastric bypass diet. She tolerated oral intake as well as tube feeding. On 04/08/2017, she was noted by physical therapistTamie that she had some focal weakness and cognitive impairment and family also was concerned. She did have a consultation with Dr. Sorin Zimmerman, which he found to be negative. On 04/11/2017, Mattie's activity was good. Her oral intake remained to be somewhat marginal but improving. Vital signs were stable, and she was able to be discharged to rehab at a long-term facility. PHYSICAL EXAMINATION: GENERAL: Mattie Ramirez is a pleasant 62-year-old female. VITAL SIGNS: Height is 5 feet 7 inches, weight is 173 pounds. TPR 98.2, 103, 20. Blood pressure 149/89. HEENT: Negative. NECK: Supple. HEART: Regular rate and rhythm. LUNGS: Clear. ABDOMEN: L[place] intact. She has a midline PINKY drain, which has been draining a dark red to light red drainage anywhere from 5 to 10 mL daily. A gastrostomy tube is in place, and abdominal binder has been on. EXTREMITIES: With very trace peripheral edema, and JESUS stockings have been on. DISPOSITION: Discharged to long-term care facility. FOLLOWUP APPOINTMENT: On 04/15/2017 at 11:00 a.m., at [place], [place], with Naz Motlye PA-C. HOME MEDICATIONS: 1. Tylenol 650 mg q.4 hours p.r.n. pain. 2. Wellbutrin 150 mg oral twice daily, immediate release, #120, 6 refills. 3. Vitron-C 1 b.i.d., #100. 4. Levothyroxine 112 mcg oral before breakfast, needs TSH checked in 3 months, #100. 5. Imodium 2 mg oral q.3 hours p.r.n. diarrhea, #60. 6. Potassium bicarbonate and potassium chloride (effervescent) 25 mEq oral daily, #100. She is to resume taking vitamin D3 50,000 international units once weekly, vitamin B12 1000 mcg sublingual daily, Cymbalta 120 mg oral at bedtime, Lasix 40 mg oral twice daily, multivitamin with iron chewable b.i.d., and Zofran 4 mg q.6 hours p.r.n. nausea. DIET AFTER DISCHARGE: Step-3 gastric bypass diet, 65 g of protein. Drink 8 to 10 glasses of water a day. ACTIVITY: No lifting greater than 10 pounds for 6 weeks. Other activity: Walk at least 6 times daily, distance and time as tolerated. May shower. Notify provider if any fever, increased pain, nausea, or vomiting. Keep site clean and dry. Wound incision care: Wear abdominal binder. May place gauze around gastrostomy tube site, and then empty, measure, and record PINKY drain 4 times a day and at bedtime. SPECIAL INSTRUCTIONS: 1. Wear JESUS hose on lower legs. 2. Gastrostomy tube feeding per separate sheet, which maintenance feeding schedule is Jevity 1.2. Continuous feeding at 83 mL per hour from 1900 to 0700 hours. Weigh the patient daily. Flush tubing with 15 mL of free water before and after feeding. Check CBC with differential, chemistry profile, iron, total iron binding capacity, magnesium, and phosphate weekly. 3. If diarrhea develops, give as needed Imodium liquid 2 mg after each loose stool, a maximum of 8 doses in 24 hours. 4. Elevate head of bed 30 degrees when feeding into the stomach at all times. 5. Keep a food journal of everything that you eat and drink and bring to clinic appointments.
[2017-04-11 11:26] VITALS: BP 125/96
== END 2017-04-11 11:15 | DRG 326 ==
LOC: JP.2SS 01:20
PROVIDERS: ADMIT Physician Assistant Medical; ATTEND Surgery
PROC: 30233N1 Transfusion of Nonautologous Red Blood Cells into Peripheral Vein, Percutaneous Approach (ICD-10-PCS; 2017-04-03)
PROC: 0D160ZA Bypass Stomach to Jejunum, Open Approach (ICD-10-PCS; principal; 2017-04-04)
PROC: 0DH60UZ Insertion of Feeding Device into Stomach, Open Approach (ICD-10-PCS; 2017-04-04)
PROC: 0DB80ZZ Excision of Small Intestine, Open Approach (ICD-10-PCS; 2017-04-04)
PROC: 0WQF0ZZ Repair Abdominal Wall, Open Approach (ICD-10-PCS; 2017-04-04)
PROC: 0DB80ZZ Excision of Small Intestine, Open Approach (ICD-10-PCS; 2017-04-04)
PROC: 0DB68ZX Excision of Stomach, Via Natural or Artificial Opening Endoscopic, Diagnostic (ICD-10-PCS; 2017-04-04)
PROC: 02HV33Z Insertion of Infusion Device into Superior Vena Cava, Percutaneous Approach (ICD-10-PCS; 2017-04-04)
PROC: 30233N1 Transfusion of Nonautologous Red Blood Cells into Peripheral Vein, Percutaneous Approach (ICD-10-PCS; 2017-04-06)
PROC: 30233N1 Transfusion of Nonautologous Red Blood Cells into Peripheral Vein, Percutaneous Approach (ICD-10-PCS; 2017-04-07)
DX: K56.600 Partial intestinal obstruction, unspecified as to cause (principal); E43 Unspecified severe protein-calorie malnutrition; K43.0 Incisional hernia with obstruction, without gangrene; E87.2 Acidosis; K91.2 Postsurgical malabsorption, not elsewhere classified; D50.9 Iron deficiency anemia, unspecified; K56.699 Other intestinal obstruction unspecified as to partial versus complete obstruction; K29.60 Other gastritis without bleeding; Z68.29 Body mass index [BMI] 29.0-29.9, adult; D64.9 Anemia, unspecified; I12.9 Hypertensive chronic kidney disease with stage 1 through stage 4 chronic kidney disease, or unspecified chronic kidney disease; E11.22 Type 2 diabetes mellitus with diabetic chronic kidney disease; N18.3 Chronic kidney disease, stage 3 (moderate); R60.1 Generalized edema; E53.8 Deficiency of other specified B group vitamins; Z98.84 Bariatric surgery status; Z98.0 Intestinal bypass and anastomosis status; F41.0 Panic disorder [episodic paroxysmal anxiety]; K20.8 Other esophagitis; F32.9 Major depressive disorder, single episode, unspecified; M54.9 Dorsalgia, unspecified; G89.29 Other chronic pain; Z87.440 Personal history of urinary (tract) infections; Z87.01 Personal history of pneumonia (recurrent); H54.7 Unspecified visual loss; Z88.8 Allergy status to other drugs, medicaments and biological substances; F11.11 Opioid abuse, in remission; F19.11 Other psychoactive substance abuse, in remission; E55.9 Vitamin D deficiency, unspecified; Z23 Encounter for immunization
CPT/HCPCS: 36415; 36430; 51702; 71010; 71010-26; 74020; 74020-26; 74240; 74240-26; 74245; 74245-26; 80048; 80053; 80305; 81001; 82728; 83540; 83550; 83605; 83735; 83880; 84100; 84443; 85025; 85027; 86850; 86900; 86901; 86920; 86922; 87081; 88302; 88307; 90686; 97110-GO; 97110-GP; 97116-GP; 97161-GP; 97166-GO; 97530-GO; 97530-GP; A9270-GY; C9113; G0008; J0171; J0330; J0694; J1100; J1170; J1642; J1940; J2185; J2405; J2704; J2710; J2765; J2795; J3010; J3411; J3420; J3475; J3480; J3490; J7042; J7050; J7120; P9016; P9047; Q9967

== ENCOUNTER 2017-09-18 07:50 | Inpatient (IN) | payer MEDICARE ==
[~2017-09-18 07:50] MED LIST: Acetaminophen 500 MG Tab PO ONE; Bupivacaine 0.5%/EPINEPHrine 1:200,000 50 ML MDV ONE; Celecoxib 200 MG Cap PO ONE; Gabapentin 300 MG Cap PO ONE; Meropenem 500 MG SDV ONE; Povidone-Iodine 10% Soln 118.25 ML Bottle ONE; Scopolamine 1.5 MG Transdermal Patch TRDERM SCH
[2017-09-18] MEDS ORDERED: Dextrose 5%-Lactated Ringers 1,000 ML IV SCH (08:15)
[2017-09-18] MEDS ORDERED: Naloxone 0.4 MG/ML SDV IVPUSH PRN (08:45)
[2017-09-18] MEDS ORDERED: HYDROmorphone/Normal Saline 15 MG/30 ML PCA IV PRN (08:45)
[2017-09-18] MEDS ORDERED: Naloxone 0.4 MG/ML SDV IV PRN (08:58)
[2017-09-18] MEDS ORDERED: cefOXitin 2 GM in Sodium Chloride 0.9% 50 ML IV ONE (09:15)
[2017-09-18] MEDS ORDERED: fentaNYL 250 MCG/5 ML SDV ONE (09:18)
[2017-09-18] MEDS ORDERED: Ondansetron 4 MG/2 ML SDV ONE (09:19)
[2017-09-18] MEDS ORDERED: Dexamethasone 4 MG/ML SDV ONE (09:19)
[2017-09-18] MEDS ORDERED: Propofol 200 MG/20 ML SDV ONE (09:19)
[2017-09-18] MEDS ORDERED: Rocuronium 50 MG/5 ML Vial ONE (09:19)
[2017-09-18] MEDS ORDERED: Neostigmine Methylsulfate 1 MG/ML 5 ML Syringe ONE (09:19)
[2017-09-18] MEDS ORDERED: Glycopyrrolate 0.2 MG/ML 5 ML MDV ONE (09:19)
[2017-09-18] MEDS ORDERED: Succinylcholine 200 MG/10 ML MDV ONE (09:19)
[2017-09-18] MEDS ORDERED: Ketamine 500 MG/5 ML MDV IV SCH (09:30)
[2017-09-18] MEDS ORDERED: Ropivacaine 45 ML, Dexamethasone 8 MG, EPINEPHrine 0.4 MG, Sodium Chloride 0.9% 32.6 ML NERVRT SCH ×4 (09:30)
[2017-09-18] MEDS ORDERED: fentaNYL 100 MCG/2 ML SDV ONE ×2 (10:21→10:35)
[2017-09-18] MEDS ORDERED: hydrOXYzine HCl 100 MG/2 ML SDV IM ONE (10:59)
[2017-09-18] MEDS: Meropenem 500 MG in Sodium Chloride 0.9% 50 ML IV SCH ×3 (11:09→23:55)
[2017-09-18] MEDS ORDERED: HYDROmorphone 2 MG Tab PO PRN (12:59)
[2017-09-18] MEDS ORDERED: hydrOXYzine HCl 100 MG/2 ML SDV IM PRN (13:01)
[2017-09-18] MEDS ORDERED: hydrOXYzine HCl 25 MG Tab PO PRN (13:01)
[2017-09-18] MEDS: Acetaminophen 325 MG Tab PO SCH ×2 (13:39→20:24)
[2017-09-18] MEDS: Dextrose 5%-Lactated Ringers 1,000 ML IV SCH ×2 (13:40→21:31)
[2017-09-18] MEDS ORDERED: VERIFY SCOPOLAMINE PATCH TOP SCH (14:00)
[2017-09-18] MEDS ORDERED: Pantoprazole 40 MG Vial IV SCH (14:00)
[2017-09-18] MEDS ORDERED: Furosemide 20 MG Tab PO SCH (14:00)
[2017-09-19] MEDS: Acetaminophen 325 MG Tab PO SCH ×2 (02:39→07:24)
[2017-09-19] MEDS: Dextrose 5%-Lactated Ringers 1,000 ML IV SCH (04:50)
[2017-09-19] MEDS: Meropenem 500 MG in Sodium Chloride 0.9% 50 ML IV SCH (05:09)
[2017-09-19] MEDS ORDERED: Levothyroxine 112 MCG Tab PO SCH (07:30)
[2017-09-19] MEDS ORDERED: Furosemide 40 MG Tab PO SCH (08:00)
[2017-09-19 08:08] VITALS: BP 110/67
[2017-09-19] MEDS ORDERED: DULoxetine 30 MG Cap PO SCH (09:00)
[2017-09-19] MEDS ORDERED: buPROPion 150 MG Tab.SR PO SCH (09:00)
--- NOTE | 2017-09-19 14:51 | DISCH ---
ADMISSION DIAGNOSES: Incisional hernia, status post Maikol-en-Y gastric bypass surgery; unspecified surgical malabsorption; B12 deficiency; chronic kidney disease, stage 3; panic disorder; and benzodiazepine dependence, in remission. DISCHARGE DIAGNOSES: Laparoscopic lysis of adhesions and takedown of gastrostomy. Date 09/18/2017. HISTORY: Mattie Ramirez is a 62-year-old female with a large incisional hernia and abdominal adhesions. After preoperative evaluation and discussion of possible risks and possible complications, she wished to proceed with surgical procedure. HOSPITAL COURSE: Mattie had her surgery on 09/18/2017. She had no operative complications. On postop day #1, she was able to be discharged to home. Vital signs were stable. Pain was well managed and activity was good. PHYSICAL EXAMINATION: GENERAL: Mattie Ramirez is a 62-year-old female. VITAL SIGNS: Height is 5 feet 7 inches. Weight is 196 pounds. TPR is 97.1, 81, 20, and blood pressure 110/67. HEENT: Negative. NECK: Supple. HEART: Regular rate and rhythm. LUNGS: Clear. ABDOMEN: Dressings dry and intact. Abdominal binder is on. EXTREMITIES: Without peripheral edema. DISPOSITION: Discharged to home. CONDITION: Stable and improving. DISCHARGE MEDICATIONS: Home Medications; 1. Dilaudid 2 mg 1 to 2 every 4 hours p.r.n. pain, #30. 2. She is to resume her home medication. DIET: As tolerated. Drink 8 to 10 glasses of water a day. ACTIVITY: No lifting greater than 10 pounds for 2 weeks. DISCHARGE INSTRUCTIONS: Wear abdominal binder. Dressing off, may shower in a.m. Notify provider if any fever, increased pain, nausea, or vomiting. She is to use incentive spirometer 10 times every hour while awake. FOLLOWUP: On , 09/25/2017, for repair of incisional hernia; general anesthesia; Mikey Logan MD; inpatient. The hospital will call on Friday afternoon for time of surgery. Nothing to eat or drink after midnight.
--- NOTE | 2017-09-23 10:15 | OR ---
DATE OF PROCEDURE: 09/18/2017 PREOPERATIVE DIAGNOSIS: Multifocal incisional hernia. POSTOPERATIVE DIAGNOSES: 1. Multifocal incisional hernia associated with extensive intra-abdominal adhesions and dense adherence of the transverse colon to abdominal wall, resulting in colotomy. 2. Status gastrostomy. OPERATIVE PROCEDURES: Diagnostic laparoscopy with lysis of extensive adhesions and: 1. Closure of colotomy (01455). 2. Takedown of gastrostomy (02347). 3. Placement of Interceed mesh to limit recurrent adhesion formation between pelvic and abdominal wall and underlying viscera ([id number]). ANESTHESIA: General. MANAGER [place]: 1. Naz Motley PA-C. 2. HODAN Emmanuel. 3. HODAN Flor. INDICATION FOR PROCEDURE: This is a 62-year-old female presenting with multifocal incisional hernia located in the midline abdominal incision. Plan is to proceed with a diagnostic laparoscopy, laparotomy if necessary, and repair of the hernia with mesh. Potential risks of the procedure including bleeding, infection, injury to underlying viscera, possible problems with the hernia recurring or mesh becoming infected, as well as possibility of cardiopulmonary, septic, or hemorrhagic complications leading to were all discussed, and the patient wishes to proceed. DETAILS OF PROCEDURE: The patient was taken to the operating room, placed in a supine position. After general endotracheal anesthesia was induced, a Baxter catheter was inserted and then the abdomen prepped and draped. In the right mid abdomen, a transverse incision was made and the peritoneal cavity entered under direct vision with an Optiview trocar and the peritoneal cavity inflated to 15 mmHg pressure with CO2. Laparoscope was reinserted. No underlying trocar insertion site injuries were seen. Following this, eventually 4 additional trocars in the right abdomen were placed, and the patient was noted to have quite florid adhesions. Generally, these involve the omentum with some separation of the small bowel. These were initially taken down with Harmonic scalpel. As one dissected in the area of the point where the transverse colon was noted, we attempted to establish a plane, which included excision of the overlying peritoneum and the posterior rectus sheath, to avoid enterotomy. This was extremely densely adherent, and a small colotomy was noted in the mid transverse colon. There was no significant spill of GI contents immediately or subsequently during the course of the procedure. At that point, some remaining attachments to the colon were taken down and the colotomy then closed with a HECTOR purple load. This was reinforced with some 3-0 Vicryl seromuscular stitch and fibrin sealant. The omentum was fixed and was not available to cover the closure of the colotomy additionally. Upon completion of the remainder of the adhesions, the patient was noted to have a persistent gastrostomy. This was divided with a HECTOR purple load as well, and the small amount of remaining stomach tissue was excised from the overlying abdominal wall and sent as a separate specimen. At that point, all of the adhesions had been taken down. The patient was noted to have such large hernias that the repair probably would be best done with an open approach, such that we would be able to obtain adequate closure of the fascial opening overlying the mesh. The mesh could not be placed today, due to the colotomy, and we at this point, decided to terminate the procedure and bring the patient back in perhaps in a week, at which time the adhesions would continue to be freed up and the body would have time to clear any contamination to limit recurrent adhesion formation. Interceed mesh was placed from the pelvic wall in the midline, up against the pelvic sidewalls and the abdominal wall, to limit any recurrence of adhesions and provide some separation of the area of colotomy closure and the abdominal wall. Once this was in place, the abdomen was irrigated with meropenem- containing saline solution. Trocars were removed. The fascia at the 12 mm site was closed with 0 Vicryl stitch and the skin with 4-0 Vicryl subcuticular stitch. Dressing applied. The patient was taken to the recovery room in satisfactory condition. Physician assistant professor, Naz Motley, played an essential role in assisting in this case, helping to position the patient, retract structures as needed, as well as suturing and cutting sutures when indicated. Her presence improved patient safety and decreased the operative time. Mikey Logan MD /[id number]
== END 2017-09-19 08:52 | disposition home or self-care (01) | DRG 327 ==
LOC: JP.SDSSCHI 07:50 → JP.SDS 07:50 → JP.2SS 10:50 → EDSTATUS 11:00 → JP.SDSSCHI 11:35 → JP.2SS 11:35
PROVIDERS: ADMIT Surgery; ATTEND Surgery
PROC: 0DNU4ZZ Release Omentum, Percutaneous Endoscopic Approach (ICD-10-PCS; principal; 2017-09-18)
PROC: 0DP64UZ Removal of Feeding Device from Stomach, Percutaneous Endoscopic Approach (ICD-10-PCS; 2017-09-18)
PROC: 0DN84ZZ Release Small Intestine, Percutaneous Endoscopic Approach (ICD-10-PCS; 2017-09-18)
PROC: 0DNL4ZZ Release Transverse Colon, Percutaneous Endoscopic Approach (ICD-10-PCS; 2017-09-18)
PROC: 0DJW4ZZ Inspection of Peritoneum, Percutaneous Endoscopic Approach (ICD-10-PCS; 2017-09-18)
PROC: 0DQL4ZZ Repair Transverse Colon, Percutaneous Endoscopic Approach (ICD-10-PCS; 2017-09-18)
PROC: 3E0M45Z Introduction of Adhesion Barrier into Peritoneal Cavity, Percutaneous Endoscopic Approach (ICD-10-PCS; 2017-09-18)
DX: K43.2 Incisional hernia without obstruction or gangrene (principal); S36.531A Laceration of transverse colon, initial encounter; K91.2 Postsurgical malabsorption, not elsewhere classified; Z93.1 Gastrostomy status; K66.0 Peritoneal adhesions (postprocedural) (postinfection); Y83.9 Surgical procedure, unspecified as the cause of abnormal reaction of the patient, or of later complication, without mention of misadventure at the time of the procedure; Y92.234 Operating room of hospital as the place of occurrence of the external cause; Z98.84 Bariatric surgery status; Z98.0 Intestinal bypass and anastomosis status; F41.1 Generalized anxiety disorder; E03.9 Hypothyroidism, unspecified; E53.8 Deficiency of other specified B group vitamins; I12.9 Hypertensive chronic kidney disease with stage 1 through stage 4 chronic kidney disease, or unspecified chronic kidney disease; N18.3 Chronic kidney disease, stage 3 (moderate); F41.0 Panic disorder [episodic paroxysmal anxiety]; F13.21 Sedative, hypnotic or anxiolytic dependence, in remission; Z88.8 Allergy status to other drugs, medicaments and biological substances
CPT/HCPCS: 36415; 80053; 82728; 83036; 83735; 84100; 88307; 94762; A9270-GY; C9113; J0171; J0330; J0694; J1100; J1170; J2185; J2405; J2704; J2710; J2795; J3010; J3410; J7042; J7050

== ENCOUNTER 2017-09-24 12:47 | Inpatient (IN) | payer MEDICARE ==
[2017-09-24] MEDS ORDERED: Sodium Chloride 0.9% 10 ML Syringe FLUSH PRN (13:52)
[2017-09-24] MEDS ORDERED: Ondansetron 4 MG/2 ML SDV IVPUSH ONE (13:52)
[2017-09-24] MEDS ORDERED: fentaNYL 100 MCG/2 ML SDV IVPUSH ONE ×2 (13:55→14:51)
--- NOTE | 2017-09-24 13:58 | EDM.PDOC ---
ED HPI GENERAL MEDICAL PROBLEM - General Chief Complaint: Gastrointestinal Problem Stated Complaint: RT LOWER ABDOMINAL PAIN Time Seen by Provider: 09/24/17 13:48 Source of Information: Reports: Patient, Family, Old Records, RN Notes Reviewed History Limitations: Reports: No Limitations - History of Present Illness INITIAL COMMENTS - FREE TEXT/NARRATIVE: 62-year-old female presents emergency department today complaint of abdominal pain, she has a history of gastric bypass recently underwent lysis of adhesions about 5 days prior. States she is doing well after the surgery and then over the last 24 hours has progressively gotten worse increased pain predominately right lower quadrant, is nauseated no vomiting passing gas and bowel movement this morning, history of gastric bypass with revision Right Lower Abdomen Pain Score (Numeric/FACES): 8 - Related Data Allergies Allergy/AdvReac Type Severity Reaction Status Date / Time Benzodiazepines AdvReac Intermediate Other Verified 09/24/17 13:28 Home Meds: Home Meds Cyanocobalamin (Vitamin B-12) [Vitamin B-12] 1,000 mcg SL DAILY 09/22/15 [ History] DULoxetine [Cymbalta] 120 mg PO BEDTIME 03/08/16 [History] Multivitamin W/Iron, Minerals [Flintstones Complete] 1 each PO BID #100 tab.chew 03/13/16 [Rx] Cholecalciferol (Vitamin D3) [Cholecalciferol] 1,000 units PO DAILY 03/12/17 [ History] Cholecalciferol (Vitamin D3) [Vitamin D3] 50,000 unit PO WEEKLY 03/12/17 [ History] Furosemide [Lasix] 40 mg PO DAILY 03/12/17 [History] Thiamine HCl [Vitamin B-1] 100 mg PO BID 03/12/17 [History] Acetaminophen [Tylenol] 650 mg PO Q4H PRN tablet 04/11/17 [Rx] Levothyroxine 112 mcg PO ACBREAKFAST #100 tablet 04/11/17 [Rx] Potassium Bicarb/Potassium Chl [Potassium Chloride] 25 meq PO DAILY #100 tab.eff 04/11/17 [Rx] Pantoprazole Sodium [Protonix] 40 mg PO DAILY 09/15/17 [History] tiZANidine [Zanaflex] 4 mg PO TID PRN 09/15/17 [History] HYDROmorphone [Dilaudid] 2 - 4 mg PO Q4H PRN #10 tablet 09/19/17 [Rx] Furosemide [Lasix] 20 mg PO QAM PRN 09/23/17 [History] Iron,Carbonyl/Ascorbic Acid [Vitron-C Tablet] 65 mg PO BID 09/23/17 [History] Past Medical History HEENT History: Reports: Impaired Vision Cardiovascular History: Reports: Hypertension, Other (See Below) Other Cardiovascular History: leg edema Respiratory History: Reports: Pneumonia, Recurrent Gastrointestinal History: Reports: Cholelithiasis, Chronic Diarrhea, Hemorrhoids Genitourinary History: Reports: Renal Calculus, UTI, Recurrent PATIENT ACCOUNTS MANAGER History: Reports: Musculoskeletal History: Reports: Back Pain, Chronic, Fracture, Other (See Below ) Other Musculoskeletal History: right ankle with pins and screws Neurological History: Reports: Concussion, Neuropathy, Peripheral Other Neuro History: left leg Psychiatric History: Reports: Anxiety, Depression, Mood Swings, Panic Attack Endocrine/Metabolic History: Reports: Diabetes, Type II, Obesity/BMI 30+, Vitamin D Deficiency Hematologic History: Reports: Anemia, B12 Deficiency, Iron Deficiency, Other ( See Below) Other Hematologic History: iron infusions - Infectious Disease History Infectious Disease History: Reports: Measles, Mumps - Past Surgical History GI Surgical History: Reports: Bariatric Procedure, Cholecystectomy, Colonoscopy , Other (See Below) Other GI Surgeries/Procedures: revision RNY Female Surgical History: Reports: Lithotripsy/ESWL, Tubal Ligation Neurological Surgical History: Reports: Other (See Below) Other Neurological Surgeries/Procedures: back surgery x 2. Musculoskeletal Surgical History: Reports: Other (See Below) Other Musculoskeletal Surgeries/Procedures:: right ankle Social & Family History - Family History Family Medical History: Noncontributory - Tobacco Use Smoking Status *Q: Never Smoker Second Hand Smoke Exposure: Yes - Caffeine Use Caffeine Use: Reports: None - Recreational Drug Use Recreational Drug Use: No ED ROS GENERAL - Review of Systems Review Of Systems: See Below Constitutional: Denies: Fever, Chills HEENT: Reports: No Symptoms Respiratory: Reports: No Symptoms Cardiovascular: Reports: No Symptoms GI/Abdominal: Reports: Abdominal Pain, Flatus, Nausea. Denies: Constipation, Diarrhea, Vomiting : Reports: No Symptoms Musculoskeletal: Reports: No Symptoms Skin: Reports: No Symptoms Neurological: Reports: No Symptoms ED EXAM, GI/ABD - Physical Exam Exam: See Below Exam Limited By: No Limitations General Appearance: Alert, WD/WN, No Apparent Distress Neck: Normal Inspection, Supple, Non-Tender, Full Range of Motion Respiratory/Chest: No Respiratory Distress, Lungs Clear, Normal Breath Sounds, No Accessory Muscle Use Cardiovascular: Regular Rate, Rhythm, No Murmur GI/Abdominal Exam: Soft, Tender (Tender right lower quadrant), Other (Surgical wounds clean dry and intact) Extremities: No Pedal Edema Course - Vital Signs Last Recorded V/S: Last Vital Signs Temp 99.1 F 09/24/17 13:14 Pulse 91 09/24/17 15:37 Resp 17 09/24/17 13:14 BP 133/75 09/24/17 16:27 Pulse Ox 98 09/24/17 15:37 - Orders/Labs/Meds Orders: Active Orders 24 hr Category Date Time Status Peripheral IV Care [RC] . DIRECTED Care 09/24/17 13:54 Active Abdomen Pelvis wo Cont [CT] Stat Exams 09/24/17 15:10 Taken UA W/MICROSCOPIC [URIN] Urgent Lab 09/24/17 13:52 Ordered Lactated Ringers [Ringers, Lactated] 1,000 ml Med 09/24/17 14:00 Active IV ASDIRECTED Sodium Chloride 0.9% [Saline Flush] Med 09/24/17 13:52 Active 10 ml FLUSH ASDIRECTED PRN ED Antiemetic Medication Reflex [OM.PC] Click to Edit Oth 09/24/17 13:52 Ordered ED Pain Medications Reflex [OM.PC] Click to Edit Oth 09/24/17 13:52 Ordered Peripheral IV Insertion Adult [OM.PC] Urgent Oth 09/24/17 13:52 Ordered Medication Orders Lactated Ringer's (Ringers, Lactated) 1,000 mls @ 125 mls/hr IV ASDIRECTED ARACELI Last Admin: 09/24/17 14:12 Dose: 125 mls/hr Sodium Chloride (Saline Flush) 10 ml FLUSH ASDIRECTED PRN PRN Reason: Keep Vein Open Last Admin: 09/24/17 15:13 Dose: 10 ml Labs: Laboratory Tests 09/24/17 09/24/17 09/24/17 Range/Units 13:52 13:52 15:59 WBC 11.1 H (4.5-11.0) K/uL RBC 4.35 (3.30-5.50) M/uL Hgb 11.3 L (12.0-15.0) g/dL Hct 34.7 L (36.0-48.0) % MCV 80 (80-98) fL MCH 26 L (27-31) pg MCHC 33 (32-36) % Plt Count 373 (150-400) K/uL Neut % (Auto) 71 H (36-66) % Lymph % (Auto) 17 L (24-44) % [place] % (Auto) 8 H (2-6) % Eos % (Auto) 4 (2-4) % Baso % (Auto) 0 (0-1) % Sodium 140 (140-148) mmol/L Potassium 3.9 (3.6-5.2) mmol/L Chloride 103 (100-108) mmol/L Carbon Dioxide 26 (21-32) mmol/L Anion Gap 11.1 (5.0-14.0) mmol/L BUN 18 (7-18) mg/dL Creatinine 1.2 H (0.6-1.0) mg/dL Est Cr Clr Drug Dosing 44.34 mL/min Estimated GFR (MDRD) 45 L (>60) Glucose 121 H (74-106) mg/dL Lactic Acid 0.9 (0.4-2.0) mmol/L Calcium 8.9 (8.5-10.1) mg/dL Total Bilirubin 0.7 (0.2-1.0) mg/dL AST 33 (15-37) U/L ALT 38 (12-78) U/L Alkaline Phosphatase 103 (46-116) U/L Total Protein 6.9 (6.4-8.2) g/dL Albumin 3.3 L (3.4-5.0) g/dL Globulin 3.6 H (2.3-3.5) g/dL Albumin/Globulin Ratio 0.9 L (1.2-2.2) Lipase 127 (73-393) U/L Meds: Medications Generic Name Dose Route Start Last Admin Trade Name Freq PRN Reason Stop Dose Admin Lactated Ringer's 1,000 mls @ 125 mls/hr 09/24/17 14:00 09/24/17 14:12 Ringers, Lactated IV 125 mls/hr ASDIRECTED ARACELI Administration Sodium Chloride 10 ml 09/24/17 13:52 09/24/17 15:13 Saline Flush FLUSH 10 ml ASDIRECTED PRN Administration Keep Vein Open Discontinued Medications Generic Name Dose Route Start Last Admin Trade Name Donta PRN Reason Stop Dose Admin Fentanyl 50 mcg 09/24/17 13:55 09/24/17 14:27 Sublimaze IVPUSH 09/24/17 13:56 100 mcg ONETIME ONE Administration Fentanyl 50 mcg 09/24/17 14:51 09/24/17 15:06 Sublimaze IVPUSH 09/24/17 14:52 50 mcg ONETIME ONE Administration Meropenem 500 mg/ Sodium 50 mls @ 100 mls/hr 09/24/17 15:11 09/24/17 15:26 Chloride IV 09/24/17 15:40 100 mls/hr ONETIME ONE Administration Ondansetron HCl 4 mg 09/24/17 13:52 09/24/17 14:23 Zofran IVPUSH 09/24/17 13:53 4 mg ONETIME ONE Administration Departure - Departure Time of Disposition: 17:19 Disposition: Admitted As Inpatient 64 Condition: Good Clinical Impression: Abdominal pain Qualifiers: Abdominal location: generalized Qualified Code(s): R10.84 - Generalized abdominal pain - Discharge Information Referrals: Susanna Sahni MD [Primary Care Provider] - Forms: ED Department Discharge - My Orders Last 24 Hours: My Active Orders 09/24/17 13:52 UA W/MICROSCOPIC [URIN] Urgent Sodium Chloride 0.9% [Saline Flush] 10 ml FLUSH ASDIRECTED PRN ED Antiemetic Medication Reflex [OM.PC] Click to Edit ED Pain Medications Reflex [OM.PC] Click to Edit Peripheral IV Insertion Adult [OM.PC] Urgent 09/24/17 13:54 Peripheral IV Care [RC] . DIRECTED 09/24/17 14:00 Lactated Ringers [Ringers, Lactated] 1,000 ml IV ASDIRECTED 09/24/17 15:10 Abdomen Pelvis wo Cont [CT] Stat - Assessment/Plan Last 24 Hours: My Active Orders 09/24/17 13:52 UA W/MICROSCOPIC [URIN] Urgent Sodium Chloride 0.9% [Saline Flush] 10 ml FLUSH ASDIRECTED PRN ED Antiemetic Medication Reflex [OM.PC] Click to Edit ED Pain Medications Reflex [OM.PC] Click to Edit Peripheral IV Insertion Adult [OM.PC] Urgent 09/24/17 13:54 Peripheral IV Care [RC] . DIRECTED 09/24/17 14:00 Lactated Ringers [Ringers, Lactated] 1,000 ml IV ASDIRECTED 09/24/17 15:10 Abdomen Pelvis wo Cont [CT] Stat Plan: Assessment Acuity = acute Site and laterality = large ventral hernia complicated patient with gastric bypass Etiology = unclear etiology Manifestations = pain Location of injury = Home Lab values = hemoglobin low 11.3 consistent normochromic anemia, creatinine elevated 1.2 consistent with chronic renal failure stage GIII a CT scan describes a large ventral hernia concern for obstruction but no definite transition point is appreciated Plan Called discussed case with Dr. Logan general surgery he agreed to evaluate patient hospital for admission This note was dictated using [employer] voice recognition software please call with any questions on syntax or balbir.
[2017-09-24] MEDS ORDERED: Lactated Ringers 1,000 ML IV SCH (14:00)
[2017-09-24] MEDS ORDERED: Meropenem 500 MG in Sodium Chloride 0.9% 50 ML IV ONE (15:11)
[2017-09-24] MEDS ORDERED: Ondansetron 4 MG/2 ML SDV IVPUSH PRN (17:31)
[2017-09-24] MEDS ORDERED: Naloxone 0.4 MG/ML SDV IV PRN (17:33)
[2017-09-24] MEDS ORDERED: Dextrose 5%-Lactated Ringers 1,000 ML IV SCH (17:45)
[2017-09-24] MEDS: HYDROmorphone/Normal Saline 15 MG/30 ML PCA IV PRN (18:47)
[2017-09-24] MEDS: Pantoprazole 40 MG Vial IV SCH (21:38)
[2017-09-24] MEDS: Meropenem 500 MG in Sodium Chloride 0.9% 50 ML IV SCH (21:38)
[2017-09-25] MEDS: Meropenem 500 MG in Sodium Chloride 0.9% 50 ML IV SCH ×4 (03:48→22:52)
[2017-09-25] MEDS: HYDROmorphone/Normal Saline 15 MG/30 ML PCA IV PRN (04:36)
[2017-09-25] MEDS ORDERED: Meropenem 500 MG SDV ONE ×2 (05:48→07:00)
[2017-09-25] MEDS ORDERED: Ropivacaine 45 ML, Dexamethasone 8 MG, EPINEPHrine 0.4 MG, Sodium Chloride 0.9% 32.6 ML NERVRT SCH ×4 (06:30)
[2017-09-25] MEDS ORDERED: Ketamine 500 MG/5 ML MDV IV SCH (06:30)
[2017-09-25] MEDS ORDERED: Neostigmine Methylsulfate 1 MG/ML 5 ML Syringe ONE (07:00)
[2017-09-25] MEDS ORDERED: Rocuronium 50 MG/5 ML Vial ONE (07:00)
[2017-09-25] MEDS ORDERED: Dexamethasone 4 MG/ML SDV ONE (07:00)
[2017-09-25] MEDS ORDERED: Glycopyrrolate 0.2 MG/ML 2 ML SDV ONE (07:00)
[2017-09-25] MEDS ORDERED: Propofol 200 MG/20 ML SDV ONE (07:00)
[2017-09-25] MEDS ORDERED: Lactated Ringers 1,000 ML IV ONE (07:00)
[2017-09-25] MEDS ORDERED: Labetalol 20 MG/4 ML Syringe ONE (07:00)
[2017-09-25] MEDS ORDERED: fentaNYL 250 MCG/5 ML SDV ONE ×3 (07:00)
[2017-09-25] MEDS ORDERED: fentaNYL 100 MCG/2 ML SDV ONE (07:00)
[2017-09-25] MEDS ORDERED: Ondansetron 4 MG/2 ML SDV ONE (07:00)
[2017-09-25] MEDS ORDERED: Meropenem 500 MG SDV IRR ONE (08:33)
[2017-09-25] MEDS ORDERED: hydrOXYzine HCl 100 MG/2 ML SDV IM ONE (09:15)
[2017-09-25] MEDS ORDERED: Ondansetron 4 MG/2 ML SDV IVPUSH ONE (09:35)
[2017-09-25] MEDS ORDERED: Sodium Chloride 0.9% 10 ML Syringe FLUSH PRN (10:51)
[2017-09-25] MEDS ORDERED: diphenhydrAMINE 50 MG/ML SDV IVPUSH PRN (11:00)
[2017-09-25] MEDS ORDERED: hydrOXYzine HCl 100 MG/2 ML SDV IM PRN (11:00)
[2017-09-25] MEDS ORDERED: Metoclopramide 10 MG/2 ML SDV IVPUSH PRN (11:00)
[2017-09-25] MEDS ORDERED: Labetalol 20 MG/4 ML Syringe IVPUSH PRN (11:00)
[2017-09-25] MEDS ORDERED: Ondansetron 4 MG/2 ML SDV IVPUSH PRN (11:00)
[2017-09-25] MEDS ORDERED: Albuterol/Ipratropium 3.0-0.5 MG/3 ML Neb Soln INH PRN (11:01)
[2017-09-25] MEDS: DULoxetine 30 MG Cap PO SCH (13:19)
[2017-09-25] MEDS: Furosemide 40 MG Tab PO SCH (13:20)
[2017-09-25] MEDS: Levothyroxine 112 MCG Tab PO SCH (13:20)
[2017-09-25] MEDS: Gabapentin 300 MG Cap PO SCH ×2 (13:20→21:42)
[2017-09-25] MEDS: Acetaminophen 325 MG Tab PO SCH ×2 (13:20→18:06)
[2017-09-25] MEDS: tiZANidine 4 MG Tab PO PRN ×2 (13:35→21:53)
[2017-09-25] MEDS ORDERED: MVI, Adult with Vitamin K 10 ML, Thiamine 100 MG, Chromium/Copper/Mang/Selen/Zn 1 ML in... IV SCH ×4 (16:00)
[2017-09-25] MEDS: Dextrose 5%-Lactated Ringers 1,000 ML IV SCH (19:39)
[2017-09-25] MEDS: Heparin Sodium 5,000 Units/ML Vial SUBCUT SCH (21:42)
[2017-09-25] MEDS: Pantoprazole 40 MG Vial IV SCH (21:42)
[2017-09-26] MEDS: Acetaminophen 325 MG Tab PO SCH ×5 (00:05→23:45)
[2017-09-26] MEDS: Dextrose 5%-Lactated Ringers 1,000 ML IV SCH ×2 (01:47→09:06)
[2017-09-26] MEDS: Meropenem 500 MG in Sodium Chloride 0.9% 50 ML IV SCH ×3 (05:19→16:04)
[2017-09-26] MEDS: HYDROmorphone/Normal Saline 15 MG/30 ML PCA IV PRN (05:59)
[2017-09-26] MEDS: Celecoxib 200 MG Cap PO SCH (07:24)
[2017-09-26] MEDS: Levothyroxine 112 MCG Tab PO SCH (07:24)
--- NOTE | 2017-09-26 08:21 | PCM.SURGPN ---
- General Info Date of Service: 09/26/17 POD#: 1 Functional Status: Reports: Tolerating Diet, Ambulating - Review of Systems General: Reports: No Symptoms Pulmonary: Reports: No Symptoms Cardiovascular: Reports: No Symptoms Gastrointestinal: Reports: Abdominal Pain Musculoskeletal: Reports: Back Pain (pt complained of back pain yesterday after surgery which she takes Zanaflex at home for. Pt states she has abdominal pain by incision. Pt has no other complaints) Skin: Reports: No Symptoms Systems Review Comment:: Pt states she is feeling well, back pain is under control since starting back on her Zanaflex. Pt states she has ate a little jello and that went fine. No nausea currently. Pt states that for about an hour yesterday she didn't have an IV because her IV came out and without her CHIEF LOAD DISPATCHER she was having 10/10 pain. Since getting a new IV and having her CHIEF LOAD DISPATCHER available her pain is at a 3/10. - Patient Data Vitals - Most Recent: Last Vital Signs Temp 36.8 C 09/26/17 02:00 Pulse 71 09/26/17 02:00 Resp 14 09/26/17 02:00 BP 107/52 L 09/26/17 02:00 Pulse Ox 94 L 09/26/17 07:22 Weight - Most Recent: 90.8 kg I&O - Last 24 Hours: Intake & Output 09/25/17 09/26/17 09/26/17 22:59 06:59 14:59 Intake Total 1182 2178 Output Total 660 480 Balance 522 2088 Lab Results Last 24 Hrs: Laboratory Results - last 24 hr 09/26/17 09/26/17 Range/Units 04:30 04:30 WBC 9.3 (4.5-11.0) K/uL RBC 3.69 (3.30-5.50) M/uL Hgb 9.5 L (12.0-15.0) g/dL Hct 30.3 L (36.0-48.0) % MCV 82 (80-98) fL MCH 26 L (27-31) pg MCHC 31 L (32-36) % Plt Count 356 (150-400) K/uL Neut % (Auto) 69 H (36-66) % Lymph % (Auto) 20 L (24-44) % [place] % (Auto) 7 H (2-6) % Eos % (Auto) 3 (2-4) % Baso % (Auto) 0 (0-1) % Sodium 140 (140-148) mmol/L Potassium 4.3 (3.6-5.2) mmol/L Chloride 104 (100-108) mmol/L Carbon Dioxide 29 (21-32) mmol/L Anion Gap 6.6 (5.0-14.0) mmol/L BUN 14 (7-18) mg/dL Creatinine 1.2 H (0.6-1.0) mg/dL Est Cr Clr Drug Dosing 44.58 mL/min Estimated GFR (MDRD) 45 L (>60) Glucose 124 H (74-106) mg/dL Calcium 8.6 (8.5-10.1) mg/dL Phosphorus 4.7 (2.5-4.9) mg/dL Magnesium 1.6 L (1.8-2.4) mg/dL Total Bilirubin 0.3 D (0.2-1.0) mg/dL AST 29 (15-37) U/L ALT 49 (12-78) U/L Alkaline Phosphatase 83 (46-116) U/L NT-Pro-B Natriuret Pep 176 H (5-125) pg/mL Total Protein 5.9 L (6.4-8.2) g/dL Albumin 2.4 L (3.4-5.0) g/dL Globulin 3.5 (2.3-3.5) g/dL Albumin/Globulin Ratio 0.7 L (1.2-2.2) TSH, Ultra Sensitive 0.550 (0.358-3.740) uIU/mL Bosotn Results Last 24 Hrs: Microbiology 09/25/17 07:10 Gram Stain - Final Other - Other Wound Culture - Preliminary Anaerobic Culture - Preliminary NO GROWTH AFTER 1 DAY Med Orders - Current: Current Medications Acetaminophen (Tylenol) 650 mg PO Q6H [facility] Last Admin: 09/26/17 05:19 Dose: 650 mg Albuterol/Ipratropium (Duoneb 3.0-0.5 Mg/3 Ml) 3 ml INH ASDIRECTED PRN PRN Reason: Shortness of Breath Celecoxib (Celebrex) 200 mg PO DAILY@0800 [facility] Last Admin: 09/26/17 07:24 Dose: 200 mg Cyanocobalamin (Vitamin B12) 1,000 mcg IM ONETIME ONE Stop: 09/27/17 09:01 Diphenhydramine HCl (Benadryl) 25 - 50 mg IVPUSH Q4H PRN PRN Reason: ITCHING Duloxetine HCl (Cymbalta) 120 mg PO DAILY [facility] Last Admin: 09/25/17 13:19 Dose: 120 mg Furosemide (Lasix) 40 mg PO DAILY [facility] Last Admin: 09/25/17 13:20 Dose: 40 mg Gabapentin (Neurontin) 300 mg PO TID [facility] Last Admin: 09/25/17 21:42 Dose: 300 mg Heparin Sodium (Porcine) (Heparin Sodium) 5,000 units SUBCUT Q12H [facility] Last Admin: 09/25/17 21:42 Dose: 5,000 units Hydromorphone HCl (Dilaudid [employer] Wellness Director 15 Mg In Ns 30 Ml) 0 mg IV ASDIRECTED PRN; Protocol PRN Reason: CHIEF LOAD DISPATCHER PAIN CONTROL Last Admin: 09/26/17 05:59 Dose: 15 mg Hydroxyzine HCl (Vistaril) 75 - 100 mg IM Q4H PRN PRN Reason: pain Dextrose/Lactated Ringer's (Dextrose 5%-Lactated Ringers) 1,000 mls @ 175 mls/ hr IV ASDIRECTED [facility] Last Admin: 09/26/17 01:47 Dose: 175 mls/hr Meropenem 500 mg/ Sodium (Chloride) 50 mls @ 100 mls/hr IV Q6H [facility] Stop: 09/26/17 17:29 Last Admin: 09/26/17 05:19 Dose: 100 mls/hr Multivitamins/Minerals 10 ml/Thiamine HCl 100 mg/ Chromium/Copper/Manganese/ Seleni/Zn 1 ml/ Dextrose/Lactated Ringer's 1,012 mls @ 174.826 mls/hr IV DAILY@ 1600 [facility] Last Admin: 09/25/17 15:26 Dose: 174.826 mls/hr Labetalol HCl (Normodyne) 5 - 15 mg IVPUSH Q1H PRN PRN Reason: SBP over 160 OR DBP over 95 Levothyroxine Sodium (Levothyroxine) 112 mcg PO ACBREAKFAST [facility] Last Admin: 09/26/17 07:24 Dose: 112 mcg Metoclopramide HCl (Reglan) 10 mg IVPUSH Q6H PRN PRN Reason: NAUSEA NOT CONTROL BY ZOFRAN Miscellaneous Information (Remove Patch) 1 ea TRDERM ONETIME ONE Stop: 09/27/17 10:01 Naloxone HCl (Narcan) 0.1 mg IV ASDIRECTED PRN PRN Reason: decreased respiratory rate Scopolamine Patch (Check) 1 each TOP DAILY [facility] Stop: 09/27/17 11:01 Ondansetron HCl (Zofran) 4 mg IVPUSH Q4H PRN PRN Reason: Nausea/Vomiting Pantoprazole Sodium (Protonix Iv) 40 mg IV Q24H [facility] Last Admin: 09/25/17 21:42 Dose: 40 mg Sodium Chloride (Saline Flush) 10 ml FLUSH ASDIRECTED PRN PRN Reason: Keep Vein Open Tizanidine HCl (Zanaflex) 4 mg PO TID PRN PRN Reason: MUSCLE SPASM Last Admin: 09/25/17 21:53 Dose: 4 mg Discontinued Medications Ropivacaine 45 ml/Dexamethasone 8 mg/Epinephrine HCl 0.4 mg/ Sodium Chloride 32.6 ml 0 ml NERVRT ASDIRECTED [facility] Last Admin: 09/25/17 07:28 Dose: 80 syringe Fentanyl (Sublimaze) 50 mcg IVPUSH ONETIME ONE Stop: 09/24/17 13:56 Last Admin: 09/24/17 14:27 Dose: 50 mcg Fentanyl (Sublimaze) 50 mcg IVPUSH ONETIME ONE Stop: 09/24/17 14:52 Last Admin: 09/24/17 15:06 Dose: 50 mcg Hydroxyzine HCl (Vistaril) 100 mg IM ONETIME ONE Stop: 09/25/17 09:16 Last Admin: 09/25/17 09:14 Dose: 100 mg Lactated Ringer's (Ringers, Lactated) 1,000 mls @ 125 mls/hr IV ASDIRECTED [facility] Last Admin: 09/24/17 14:12 Dose: 125 mls/hr Meropenem 500 mg/ Sodium (Chloride) 50 mls @ 100 mls/hr IV ONETIME ONE Stop: 09/24/17 15:40 Last Admin: 09/24/17 15:26 Dose: 100 mls/hr Ketamine HCl 100 mg/ Sodium (Chloride) 100 mls @ 18 mls/hr IV ASDIRECTED [facility] Meropenem 500 mg/ Sodium (Chloride) 50 mls @ 100 mls/hr IV Q6H [facility] Last Admin: 09/25/17 03:48 Dose: 100 mls/hr Dextrose/Lactated Ringer's (Dextrose 5%-Lactated Ringers) 1,000 mls @ 100 mls/ hr IV ASDIRECTED [facility] Last Admin: 09/25/17 02:51 Dose: 100 mls/hr Ketamine HCl (Ketalar) 30 mg IV ASDIRECTED [facility] Meropenem (Merrem) Confirm Administered Dose 500 mg .ROUTE .STK-MED ONE Stop: 09/25/17 05:49 Last Admin: 09/25/17 07:29 Dose: 500 mg Meropenem (Merrem) 500 mg IRR .STK-MED ONE Stop: 09/25/17 08:34 Last Admin: 09/25/17 08:33 Dose: 500 mg Ondansetron HCl (Zofran) 4 mg IVPUSH ONETIME ONE Stop: 09/24/17 13:53 Last Admin: 09/24/17 14:23 Dose: 4 mg Ondansetron HCl (Zofran) 4 mg IVPUSH Q4H PRN PRN Reason: NAUSEA Last Admin: 09/24/17 21:38 Dose: 4 mg Ondansetron HCl (Zofran) 4 mg IVPUSH ONETIME ONE Stop: 09/25/17 09:36 Last Admin: 09/25/17 09:34 Dose: 4 mg Sodium Chloride (Saline Flush) 10 ml FLUSH ASDIRECTED PRN PRN Reason: Keep Vein Open Last Admin: 09/24/17 15:13 Dose: 10 ml - Exam Wound/Incisions: Drainage (Pt has open incision and this is seen without erythema, there is some drainage on the dressing, there is some tenderness in this area. PINKY drain #1 put out 30 ml through the night and #2 put out 40. PINKY drainage is still bloody.) General: Alert, Oriented, Cooperative, No Acute Distress HEENT: Pupils Equal, EOMI Lungs: Clear to Auscultation, Normal Respiratory Effort Cardiovascular: Regular Rate, Regular Rhythm, Murmurs (Pt has a systolic murmur heard best at the Lt 2nd intercostal space. This is a known murmur and is not new ) GI/Abdominal Exam: Soft, Tender (around incsion) Skin: Warm, Dry Psy/Mental Status: Alert, Normal Affect, Normal Mood Physical Findings Comment:: Pt is AO X3 and very pleasant today. Pt is up ambulating and has tolerated some food. - Problem List & Annotations (1) Abdominal pain SNOMED Code(s): 18440566 Code(s): R10.9 - UNSPECIFIED ABDOMINAL PAIN Status: Acute Current Visit: Yes Qualifiers: Abdominal location: generalized Qualified Code(s): R10.84 - Generalized abdominal pain (2) Status post exploratory laparotomy SNOMED Code(s): 611130356, 36578297, 867032220 Code(s): Z98.890 - OTHER SPECIFIED POSTPROCEDURAL STATES Status: Acute Current Visit: Yes - Problem List Review Problem List Initiated/Reviewed/Updated: Yes - My Orders Last 24 Hours: Active Orders 24 hr Category Date Time Status Cardiac Monitoring Discontinue [RC] Click to Edit Care 09/26/17 09:00 Active Cardiac Monitoring [RC] .As Directed Care 09/25/17 10:51 Active Communication Order [RC] Q4H Care 09/25/17 10:51 Active Communication Order [RC] ROUTINE Care 09/25/17 10:51 Active Drain Management [RC] ASDIRECTED Care 09/25/17 10:51 Active Head of Bed Elevation [RC] CONTINUOUS Care 09/25/17 10:51 Active Insert Urinary Catheter [OM.PC] Per Unit Routine Care 09/25/17 10:51 Ordered Notify Provider Intake and Out [RC] ASDIRECTED Care 09/25/17 10:51 Active Notify Provider [RC] PRN Care 09/25/17 10:51 Active Oxygen Therapy [RC] ASDIRECTED Care 09/25/17 10:51 Active Peripheral IV Care [RC] . DIRECTED Care 09/25/17 10:55 Active Pneumonia Education [RC] UPON Care 09/25/17 10:51 Active RT Incentive Spirometry [RC] ASDIRECTED Care 09/25/17 10:51 Active Turn, Cough, Deep Breathe [RC] Q1HWA Care 09/25/17 10:51 Active Up to Chair [RC] TIDMEALS Care 09/25/17 10:51 Active Consult to Bariatric Services [CONS] Routine Cons 09/25/17 10:51 Active Consult to Ticket Taker [CONS] Routine Cons 09/25/17 10:51 Active Consult to Pharmacy [CONS] Routine Cons 09/25/17 10:51 Active Respiratory Care Assess and Treatment [CONS] Routine Cons 09/25/17 10:51 Active Bariatric Diet [DIET] Diet 09/25/17 Lunch Active UGI wo KUB [CR] Timed Exams 09/28/17 04:00 Ordered Acetaminophen [Tylenol] Med 09/25/17 12:00 Active 650 mg PO Q6H Albuterol/Ipratropium [DuoNeb 3.0-0.5 MG/3 ML] Med 09/25/17 11:01 Active 3 ml INH ASDIRECTED PRN Celecoxib [CeleBREX] Med 09/26/17 08:00 Active 200 mg PO DAILY@0800 Cyanocobalamin (Vitamin B12) [Vitamin B12] Med 09/27/17 09:00 Once 1,000 mcg IM ONETIME ONE DULoxetine [Cymbalta] Med 09/25/17 14:00 Active 120 mg PO DAILY Dextrose 5%-Lactated Ringers 1,000 ml Med 09/25/17 11:00 Active IV ASDIRECTED Furosemide [Lasix] Med 09/25/17 13:00 Active 40 mg PO DAILY Gabapentin [Neurontin] Med 09/25/17 14:00 Active 300 mg PO TID Heparin Sodium Med 09/25/17 20:00 Active 5,000 units SUBCUT Q12H Labetalol [Normodyne] Med 09/25/17 11:00 Active 5 - 15 mg IVPUSH Q1H PRN Levothyroxine Med 09/25/17 13:00 Active 112 mcg PO ACBREAKFAST MVI, Adult with Vitamin K [Infuvite Adult] 10 ml Med 09/25/17 16:00 Active Thiamine [Vitamin B-1] 100 mg Chromium/Copper/Gagandeep/Selen/Zn [Multitrace-5 Concentrate ] 1 ml Dextrose 5%-Lactated Ringers 1,000 ml IV DAILY@1600 Meropenem [Merrem] 500 mg Med 09/25/17 11:00 Active Sodium Chloride 0.9% [Normal Saline] 50 ml IV Q6H Metoclopramide [Reglan] Med 09/25/17 11:00 Active 10 mg IVPUSH Q6H PRN Non-Formulary Medication [NF Drug] Med 09/25/17 11:00 Active 1 each TOP DAILY Ondansetron [Zofran] Med 09/25/17 11:00 Active 4 mg IVPUSH Q4H PRN Remove Patch Med 09/27/17 10:00 Once 1 ea TRDERM ONETIME ONE Sodium Chloride 0.9% [Saline Flush] Med 09/25/17 10:51 Active 10 ml FLUSH ASDIRECTED PRN diphenhydrAMINE [Benadryl] Med 09/25/17 11:00 Active 25 - 50 mg IVPUSH Q4H PRN hydrOXYzine HCl [Vistaril] Med 09/25/17 11:00 Active 75 - 100 mg IM Q4H PRN tiZANidine [Zanaflex] Med 09/25/17 11:07 Active 4 mg PO TID PRN Abdominal Binder [OM.PC] Routine Ot 09/25/17 10:51 Ordered Air Mattress [Pressure Reduction Mattress] [OM.PC] Ot 09/26/17 07:45 Ordered Routine Oral Care [OM.PC] BID Oth 09/25/17 11:00 Ordered Oral Care [OM.PC] BID Oth 09/26/17 11:00 Ordered PT Screening [OM.PC] Routine Oth 09/25/17 10:51 Active Peripheral IV Insertion Adult [OM.PC] Routine Oth 09/25/17 10:51 Ordered Sequential Compression Device [OM.PC] Routine Oth 09/25/17 10:51 Ordered Specialty Bed [OM.PC] Routine Oth 09/25/17 10:51 Ordered Medication Orders Acetaminophen (Tylenol) 650 mg PO Q6H [facility] Last Admin: 09/26/17 05:19 Dose: 650 mg Admin: 09/26/17 00:05 Dose: 650 mg Admin: 09/25/17 18:06 Dose: 650 mg Admin: 09/25/17 13:20 Dose: 650 mg Albuterol/Ipratropium (Duoneb 3.0-0.5 Mg/3 Ml) 3 ml INH ASDIRECTED PRN PRN Reason: Shortness of Breath Celecoxib (Celebrex) 200 mg PO DAILY@0800 [facility] Last Admin: 09/26/17 07:24 Dose: 200 mg Cyanocobalamin (Vitamin B12) 1,000 mcg IM ONETIME ONE Stop: 09/27/17 09:01 Diphenhydramine HCl (Benadryl) 25 - 50 mg IVPUSH Q4H PRN PRN Reason: ITCHING Duloxetine HCl (Cymbalta) 120 mg PO DAILY [facility] Last Admin: 09/25/17 13:19 Dose: 120 mg Furosemide (Lasix) 40 mg PO DAILY [facility] Last Admin: 09/25/17 13:20 Dose: 40 mg Gabapentin (Neurontin) 300 mg PO TID [facility] Last Admin: 09/25/17 21:42 Dose: 300 mg Admin: 09/25/17 13:20 Dose: 300 mg Heparin Sodium (Porcine) (Heparin Sodium) 5,000 units SUBCUT Q12H [facility] Last Admin: 09/25/17 21:42 Dose: 5,000 units Hydromorphone HCl (Dilaudid Sports [employer]itness And Wellness Director 15 Mg In Ns 30 Ml) 0 mg IV ASDIRECTED PRN; Protocol PRN Reason: CHIEF LOAD DISPATCHER PAIN CONTROL Last Admin: 09/26/17 05:59 Dose: 15 mg Admin: 09/25/17 04:36 Dose: 15 mg Admin: 09/24/17 18:47 Dose: 15 mg Hydroxyzine HCl (Vistaril) 75 - 100 mg IM Q4H PRN PRN Reason: pain Dextrose/Lactated Ringer's (Dextrose 5%-Lactated Ringers) 1,000 mls @ 175 mls/ hr IV ASDIRECTED [facility] Last Admin: 09/26/17 01:47 Dose: 175 mls/hr Infusion: 09/26/17 01:22 Dose: 175 mls/hr Admin: 09/25/17 19:39 Dose: 175 mls/hr Meropenem 500 mg/ Sodium (Chloride) 50 mls @ 100 mls/hr IV Q6H [facility] Stop: 09/26/17 17:29 Last Admin: 09/26/17 05:19 Dose: 100 mls/hr Admin: 09/25/17 22:52 Dose: 100 mls/hr Admin: 09/25/17 16:15 Dose: 100 mls/hr Admin: 09/25/17 11:41 Dose: 100 mls/hr Multivitamins/Minerals 10 ml/Thiamine HCl 100 mg/ Chromium/Copper/Manganese/ Seleni/Zn 1 ml/ Dextrose/Lactated Ringer's 1,012 mls @ 174.826 mls/hr IV DAILY@ 1600 [facility] Last Admin: 09/25/17 15:26 Dose: 174.826 mls/hr Labetalol HCl (Normodyne) 5 - 15 mg IVPUSH Q1H PRN PRN Reason: SBP over 160 OR DBP over 95 Levothyroxine Sodium (Levothyroxine) 112 mcg PO ACBREAKFAST [facility] Last Admin: 09/26/17 07:24 Dose: 112 mcg Admin: 09/25/17 13:20 Dose: 112 mcg Metoclopramide HCl (Reglan) 10 mg IVPUSH Q6H PRN PRN Reason: NAUSEA NOT CONTROL BY ZOFRAN Miscellaneous Information (Remove Patch) 1 ea TRDERM ONETIME ONE Stop: 09/27/17 10:01 Naloxone HCl (Narcan) 0.1 mg IV ASDIRECTED PRN PRN Reason: decreased respiratory rate Scopolamine Patch (Check) 1 each TOP DAILY [facility] Stop: 09/27/17 11:01 Ondansetron HCl (Zofran) 4 mg IVPUSH Q4H PRN PRN Reason: Nausea/Vomiting Pantoprazole Sodium (Protonix Iv) 40 mg IV Q24H [facility] Last Admin: 09/25/17 21:42 Dose: 40 mg Admin: 09/24/17 21:38 Dose: 40 mg Sodium Chloride (Saline Flush) 10 ml FLUSH ASDIRECTED PRN PRN Reason: Keep Vein Open Tizanidine HCl (Zanaflex) 4 mg PO TID PRN PRN Reason: MUSCLE SPASM Last Admin: 09/25/17 21:53 Dose: 4 mg Admin: 09/25/17 13:35 Dose: 4 mg - Assessment Assessment (Free Text/Narrative):: -Status post exploratory laparotomy -Status post colectomy -Abdominal Pain -Chronic back pain - Plan Plan (Free Text/Narrative):: -We will continue pts Zanaflex for her chronic back pain -Pt can continue CHIEF LOAD DISPATCHER for pain -Pt can continue step 1 diet -Pt to remain NPO after midnight for surgery tomorrow -OPC scheduled for tomorrow
[2017-09-26] MEDS: Heparin Sodium 5,000 Units/ML Vial SUBCUT SCH ×2 (08:39→21:02)
[2017-09-26] MEDS: DULoxetine 30 MG Cap PO SCH (08:47)
[2017-09-26] MEDS: Gabapentin 300 MG Cap PO SCH ×3 (08:48→21:02)
[2017-09-26] MEDS: Furosemide 40 MG Tab PO SCH (08:49)
[2017-09-26] MEDS: SCOPOLAMINE PATCH CHECK TOP SCH (09:05)
[2017-09-26] MEDS: tiZANidine 4 MG Tab PO PRN ×2 (10:11→21:07)
[2017-09-26] MEDS ORDERED: MVI, Adult with Vitamin K 10 ML, Thiamine 100 MG, Chromium/Copper/Mang/Selen/Zn 1 ML in... IV SCH ×4 (16:00)
[2017-09-26] MEDS: Pantoprazole 40 MG Vial IV SCH (21:01)
[2017-09-27] MEDS: Dextrose 5%-Lactated Ringers 1,000 ML IV SCH (03:31)
[2017-09-27] MEDS ORDERED: Bupivacaine 0.5% 50 ML MDV ONE (05:37)
[2017-09-27] MEDS ORDERED: Lidocaine 1% with EPINEPHrine 1:100,000 50 ML MDV ONE (05:37)
[2017-09-27] MEDS ORDERED: Meropenem 500 MG SDV ONE (05:37)
[2017-09-27] MEDS: Acetaminophen 325 MG Tab PO SCH ×4 (06:04→23:07)
[2017-09-27] MEDS ORDERED: Propofol 200 MG/20 ML SDV ONE ×2 (07:00→07:31)
[2017-09-27] MEDS ORDERED: fentaNYL 100 MCG/2 ML SDV ONE (07:00)
[2017-09-27] MEDS ORDERED: Ropivacaine 45 ML, Dexamethasone 8 MG, EPINEPHrine 0.4 MG, Sodium Chloride 0.9% 32.6 ML NERVRT ONE ×4 (07:30)
[2017-09-27] MEDS: Levothyroxine 112 MCG Tab PO SCH (08:35)
[2017-09-27] MEDS: Celecoxib 200 MG Cap PO SCH (08:35)
[2017-09-27] MEDS: Heparin Sodium 5,000 Units/ML Vial SUBCUT SCH ×2 (08:36→19:51)
[2017-09-27] MEDS: DULoxetine 30 MG Cap PO SCH (08:37)
[2017-09-27] MEDS: Gabapentin 300 MG Cap PO SCH ×3 (08:37→21:40)
[2017-09-27] MEDS: Furosemide 40 MG Tab PO SCH (08:37)
[2017-09-27] MEDS: SCOPOLAMINE PATCH CHECK TOP SCH (08:37)
[2017-09-27] MEDS: HYDROmorphone/Normal Saline 15 MG/30 ML PCA IV PRN (08:41)
[2017-09-27] MEDS ORDERED: Dextrose 5%-Lactated Ringers 1,000 ML IV SCH ×2 (08:45→13:30)
[2017-09-27] MEDS ORDERED: Cyanocobalamin (Vitamin B12) 1,000 MCG/ML SDV IM ONE (09:00)
[2017-09-27] MEDS: tiZANidine 4 MG Tab PO PRN ×2 (12:01→21:40)
[2017-09-27] MEDS: Piperacillin/Tazobactam/Dext 3.375 GM in Premix Bag 1 BAG IV SCH ×2 (13:51→19:51)
[2017-09-27] MEDS ORDERED: MVI, Adult with Vitamin K 10 ML, Thiamine 100 MG, Chromium/Copper/Mang/Selen/Zn 1 ML in... IV SCH ×4 (16:00)
[2017-09-27] MEDS: Pantoprazole 40 MG Vial IV SCH (19:52)
[2017-09-28] MEDS: Piperacillin/Tazobactam/Dext 3.375 GM in Premix Bag 1 BAG IV SCH ×2 (02:37→07:43)
[2017-09-28] MEDS: Acetaminophen 325 MG Tab PO SCH (05:57)
[2017-09-28 07:35] VITALS: BP 104/83
[2017-09-28] MEDS: Heparin Sodium 5,000 Units/ML Vial SUBCUT SCH (07:41)
[2017-09-28] MEDS: Levothyroxine 112 MCG Tab PO SCH (07:41)
[2017-09-28] MEDS: Celecoxib 200 MG Cap PO SCH (07:41)
[2017-09-28] MEDS: Gabapentin 300 MG Cap PO SCH (08:03)
[2017-09-28] MEDS: DULoxetine 30 MG Cap PO SCH (08:03)
[2017-09-28] MEDS: Furosemide 40 MG Tab PO SCH (08:03)
[2017-09-28] MEDS ORDERED: HYDROmorphone 2 MG Tab PO PRN (08:37)
--- NOTE | 2017-09-29 11:19 | OR ---
DATE OF PROCEDURE: 09/27/2017 PREOPERATIVE DIAGNOSIS: Open abdominal incision. POSTOPERATIVE DIAGNOSIS: Open abdominal incision. PROCEDURE: Delayed primary closure of open abdominal incision. ANESTHESIA: Local plus IV sedation. DETAILS OF PROCEDURE: The patient was taken to the operating room and placed in a supine position. The operative dressing was taken down and the wound inspected and found to be clean and appropriate for closure. Bilateral mid abdominal transversus abdominis plane blocks were then placed with direct visualization of the needle tip in the correct plane by ultrasound. Standard solution was injected on each side. Following this, the abdomen was prepped and draped. The incision was then anesthetized with some 1% lidocaine mixed with Marcaine and irrigated with meropenem-containing saline solution. A long midline incision was then drained with a 10-Jordanian round Wyatt-Schuster drain placed inferior to the main incision and the incision was then closed with a deeper layer of 3-0 Vicryl stitch, 4-0 Vicryl subdermal stitch, and saravanan for the skin. The drain was also fixed to the skin with 4-0 Vicryl stitch. The patient was taken to the recovery room in satisfactory condition. Mikey Logan MD /[id number]
--- NOTE | 2017-09-29 11:52 | PN ---
DATE OF SERVICE: 09/24/2017 Ms. Ramirez is scheduled tomorrow for an open repair of an incisional hernia. This is a multifocal, very large incisional hernia. Last week we initially were proceeding with a laparoscopic approach, at which time a small opening was noted in the transverse colon. This was closed and reinforced with fibrin sealant and omentum. The patient had been doing well up until the last night when she developed onset of worsening abdominal pain. This was associated with quite a bit in the way of abdominal distention and some nausea. A CT scan was obtained, which did not show any evidence of perforation, i.e. there was no free air and there was no obvious abscess formation. The patient at this point is clinically stable. The plan will be to proceed with the ongoing hydration and initiation of some antibiotics along with proton pump inhibitors, and the patient agreed to proceed with surgical exploration tomorrow. If it appears appropriate we will repair the hernias with mesh, otherwise hernias will be repaired without mesh, and we will also evaluate viscera to see if there is any acute pathology beyond the bowel being simply incarcerated within the hernia. The potential risks of the procedure including bleeding, infection, leaks from any GI tract closures as well as possibility of cardiopulmonary, septic, or hemorrhagic complications leading to were all discussed, and the patient wishes to proceed. Surgery will be be undertaken tomorrow morning. Mikey Logan MD /[id number]
--- NOTE | 2017-09-29 14:52 | OR ---
DATE OF PROCEDURE: 09/25/2017 PREOPERATIVE DIAGNOSES: 1. Recurrent incarcerated incisional hernia. 2. Marked distention and decompensation of right transverse colon. 3. Inflammatory bloody fluid collection, right subhepatic area. 4. Extensive intraabdominal adhesions. OPERATIVE PROCEDURES: Exploratory laparotomy with: 1. Total abdominal colectomy with ileoproctostomy (72531). 2. Drainage of bloody inflammatory fluid collection, right subhepatic area (01682). 3. Repair of incarcerated incisional hernia without mesh (65507). 4. Placement of Interceed mesh to limit recurrent pelvic and abdominal wall adhesions to the underlying viscera (19650). ANESTHESIA: General. ASSISTANTS: 1. Naz Motley PA-C. 2. HODAN Flor. 3. HODAN Emmanuel. INDICATION FOR PROCEDURE: Please see the progress note dictated 09/24/2017. DETAILS OF PROCEDURE: The patient was taken to the operating room, and after general endotracheal anesthesia was induced, the abdomen was prepped and draped and a Baxter catheter inserted. A midline incision was made over the area above the umbilicus and carried down through the skin and subcutaneous tissue. Two distinct hernia sacs were encountered, both of which were quite large. Within these contained some incarcerated small bowel. This was gradually reduced. In general, there was quite striking edema in all of the tissues in the upper and mid-abdomen. There was no obvious free air or purulence present. There was focal inflammation at the point of the previous repair of the transverse colon. The striking finding, however, was that of an extremely dilated right transverse colon. This dilation then continued down into the descending colon as well, and at the level of the junction of the colon and rectum, the caliber of the lumen normalized. This was felt to be likely contributing to the patient's symptoms, and a decision was made to proceed with an abdominal colectomy with anastomosis between the ileum and the rectum. During the course of the inspection, the patient was noted to have bloody inflammatory fluid collection. This was not overtly infected but may possibly harbor some bacteria. Cultures of this were also then obtained. At this point, the junction of the sigmoid colon and rectum was divided with a HECTOR stapler, as was the distalmost small bowel. On each side, the peritoneal reflection of the colon was undertaken and the colon mobilized away from the retroperitoneal attachments. The omentum along the transverse colon was then divided from that as well with a combination of cautery and HECTOR saravanan. Once this was completed, both ureters were identified, as was the duodenum on the right side. The mesentery of the bowel to be resected was divided with a combination of mesenteric and vascular saravanan. The extremely dilated colon was then delivered from the field. At this point, the abdomen was irrigated with a meropenem-containing saline solution. The bloody area in the right subhepatic area appeared to be well drained at this point. The anastomosis between the distalmost small bowel and rectum was then accomplished with 2 internal firings of the HECTOR crespo loads, one being a 60-mm stapler and the other 45-mm in length staple line, and then closed transversely with the purple load, angles anastomosed, and mesenteric defect approximated with some 3-0 Vicryl stitch, along with fibrin sealant. At this point, the area of hernia sac was dissected away from the subcutaneous tissue down to the level of fascia in both locations. Two Wyatt-Schuster drains were placed, one on the right and one on the left, both taken into the colic gutter and from there into the pelvis. The hernias were then repaired using primary suture repair without a permanent mesh, given the degree of contamination inherent in the bowel resection. Interceed mesh, however, was placed from the pelvis and up against the abdominal wall to displace viscera from those areas to limit recurrent adhesion formation. The midline fascia was then approximated with #2 Vicryl stitch, which also closed the incisional hernia. The skin and subcutaneous tissue were felt to be at high risk for wound infection and were, therefore, packed open for a planned delayed primary closure in 48 hours. The patient also received a transabdominal plane block across the central abdominal area during the procedure with direct visualization of the needle in the correct plane prior to injection of the standard solution. The patient was taken to the recovery room in a satisfactory condition. Naz Motley PA-C, played an important role in this case, helping to position the patient, retraction of structures as needed, and suturing and cutting sutures when indicated. Her presence improved patient safety and decreased the operative time. Mikey Logan MD /[id number]
--- NOTE | 2017-09-30 09:38 | DISCH ---
FINAL DIAGNOSES: 1. Incarcerated incisional hernia. 2. Marked distention and decompensation of right and transverse colon. 3. Inflammatory bloody fluid collection in right subhepatic area, growing Enterobacter on final cultures. 4. Extensive intra-abdominal adhesions. 5. Bariatric surgery status. 6. History of panic disorder. 7. Chronic kidney disease. OPERATIVE PROCEDURE: Done on 09/25/2017, exploratory laparotomy with: 1. Subtotal colectomy with ileostomy. 2. Drainage of bloody inflammatory fluid collection in right subhepatic area. 3. Repair of incarcerated incisional hernia. 4. Placement of Interceed mesh to limit recurrent adhesion formation. 5. Delayed primary closure of abdominal incision on 09/27/2017. HOSPITAL COURSE: This is a 62-year-old presenting with a complicated incisional hernia, and this had evidently incarcerated on admission. On exploration, she had a quite marked edema and striking dilation of the right and transverse colons. There may have been a microperforation in the area of the transverse colon, but this was not certain nor grossly evident. She did have some bloody fluid, which was not grossly infected, but did grow out Enterobacter eventually in the right subhepatic area. Postoperatively, she has done well, she is tolerating diet, and we will send her home on a step-4 diet. She will be continued on home medications, plus Dilaudid 2 to 4 mg q.4 hours p.r.n. pain #50, doxycycline 100 mg p.o. b.i.d. x7 days, which should cover the Enterobacter; and Tylenol and Imodium as needed for pain and frequent loose bowel movements. She will be following up with Naz Motley PA-C, in [facility] on 10/06/2017.
== END 2017-09-28 08:47 | disposition home or self-care (01) | DRG 330 ==
LOC: JP.ED 12:47 → JP.MS 17:25
PROVIDERS: ADMIT Surgery; ATTEND Surgery
PROC: 0DTE0ZZ Resection of Large Intestine, Open Approach (ICD-10-PCS; principal; 2017-09-25)
PROC: 0WQF0ZZ Repair Abdominal Wall, Open Approach (ICD-10-PCS; 2017-09-25)
PROC: 0W9G0ZX Drainage of Peritoneal Cavity, Open Approach, Diagnostic (ICD-10-PCS; 2017-09-25)
PROC: 3E0M05Z Introduction of Adhesion Barrier into Peritoneal Cavity, Open Approach (ICD-10-PCS; 2017-09-25)
PROC: 3E0T3BZ Introduction of Anesthetic Agent into Peripheral Nerves and Plexi, Percutaneous Approach (ICD-10-PCS; 2017-09-25)
PROC: 0WQF0ZZ Repair Abdominal Wall, Open Approach (ICD-10-PCS; 2017-09-27)
PROC: 3E0T3BZ Introduction of Anesthetic Agent into Peripheral Nerves and Plexi, Percutaneous Approach (ICD-10-PCS; 2017-09-27)
DX: K43.0 Incisional hernia with obstruction, without gangrene (principal); I10 Essential (primary) hypertension; K59.39 Other megacolon; R10.31 Right lower quadrant pain; R18.8 Other ascites; K63.89 Other specified diseases of intestine; K66.0 Peritoneal adhesions (postprocedural) (postinfection); Z48.1 Encounter for planned postprocedural wound closure; B96.89 Other specified bacterial agents as the cause of diseases classified elsewhere; Z98.84 Bariatric surgery status; Z98.0 Intestinal bypass and anastomosis status; I12.9 Hypertensive chronic kidney disease with stage 1 through stage 4 chronic kidney disease, or unspecified chronic kidney disease; E11.22 Type 2 diabetes mellitus with diabetic chronic kidney disease; N18.9 Chronic kidney disease, unspecified; E55.9 Vitamin D deficiency, unspecified; E53.8 Deficiency of other specified B group vitamins; F32.9 Major depressive disorder, single episode, unspecified; F41.9 Anxiety disorder, unspecified; M54.9 Dorsalgia, unspecified; G89.29 Other chronic pain; Z87.440 Personal history of urinary (tract) infections; Z87.01 Personal history of pneumonia (recurrent); H54.7 Unspecified visual loss; Z88.8 Allergy status to other drugs, medicaments and biological substances; E11.42 Type 2 diabetes mellitus with diabetic polyneuropathy
CPT/HCPCS: 36415; 74176; 80053; 83605; 83690; 85025; 96365; 96375; 99285; J2185; J2405; J3010 ×2; J7050 ×2; J7120; 81001; 83735; 83880; 84100; 84443; 87070; 87075; 87077; 87186; 87205; 88302; 88307; 88341; 88342; 93005; 94762; 96367; 99284; A9270-GY; C9113; J0171; J1100; J1170; J1644; J2543; J2704; J2710; J2795; J3410; J3411; J3420; J3490; J7030; J7042

== ENCOUNTER 2017-10-22 20:02 | Emergency (ER) | payer MEDICARE ==
[2017-10-22 20:45] VITALS: BP 165/86
--- NOTE | 2017-10-22 20:59 | EDM.PDOC ---
ED HPI GENERAL MEDICAL PROBLEM - General Chief Complaint: Wound Recheck Stated Complaint: INCISON OPENED UP Time Seen by Provider: 10/22/17 20:50 Source of Information: Reports: Patient, Provider History Limitations: Reports: No Limitations - History of Present Illness INITIAL COMMENTS - FREE TEXT/NARRATIVE: 62-year-old female who had an abdominal surgery over a month ago bent over and felt the lower aspect of her wound open. This was evaluated in [place], she was sent down here for surgical opinion. There is no drainage or significant tenderness. - Related Data Allergies Allergy/AdvReac Type Severity Reaction Status Date / Time Benzodiazepines AdvReac Intermediate Other Verified 10/22/17 20:52 Home Meds: Home Meds Cyanocobalamin (Vitamin B-12) [Vitamin B-12] 1,000 mcg SL DAILY 09/22/15 [ History] Multivitamin W/Iron, Minerals [Flintstones Complete] 1 each PO BID #100 tab.chew 03/13/16 [Rx] Cholecalciferol (Vitamin D3) [Cholecalciferol] 1,000 units PO DAILY 03/12/17 [ History] Furosemide [Lasix] 40 mg PO DAILY 03/12/17 [History] Thiamine HCl [Vitamin B-1] 100 mg PO BID 03/12/17 [History] Acetaminophen [Tylenol] 650 mg PO Q4H PRN tablet 04/11/17 [Rx] Levothyroxine 112 mcg PO ACBREAKFAST #100 tablet 04/11/17 [Rx] tiZANidine [Zanaflex] 4 mg PO TID PRN 09/15/17 [History] Furosemide [Lasix] 20 mg PO QAM PRN 09/23/17 [History] Iron,Carbonyl/Ascorbic Acid [Vitron-C Tablet] 65 mg PO BID 09/23/17 [History] Past Medical History HEENT History: Reports: Impaired Vision Cardiovascular History: Reports: Hypertension, Other (See Below) Other Cardiovascular History: leg edema Respiratory History: Reports: Pneumonia, Recurrent Gastrointestinal History: Reports: Cholelithiasis, Chronic Diarrhea, Hemorrhoids Genitourinary History: Reports: Renal Calculus, UTI, Recurrent [employer] History: Reports: Musculoskeletal History: Reports: Back Pain, Chronic, Fracture, Other (See Below ) Other Musculoskeletal History: right ankle with pins and screws Neurological History: Reports: Concussion, Neuropathy, Peripheral Other Neuro History: left leg Psychiatric History: Reports: Anxiety, Depression, Mood Swings, Panic Attack Endocrine/Metabolic History: Reports: Diabetes, Type II, Obesity/BMI 30+, Vitamin D Deficiency Hematologic History: Reports: Anemia, B12 Deficiency, Iron Deficiency, Other ( See Below) Other Hematologic History: iron infusions - Infectious Disease History Infectious Disease History: Reports: Measles, Mumps - Past Surgical History Head Surgeries/Procedures: Reports: None GI Surgical History: Reports: Bariatric Procedure, Cholecystectomy, Colonoscopy , Hernia, Abdominal, Other (See Below) Other GI Surgeries/Procedures: revision RNY Female Surgical History: Reports: Lithotripsy/ESWL, Tubal Ligation Neurological Surgical History: Reports: Other (See Below) Other Neurological Surgeries/Procedures: back surgery x 2. Musculoskeletal Surgical History: Reports: Other (See Below) Other Musculoskeletal Surgeries/Procedures:: right ankle Dermatological Surgical History: Reports: None Social & Family History - Family History Family Medical History: Noncontributory - Tobacco Use Smoking Status *Q: Never Smoker - Caffeine Use Caffeine Use: Reports: None - Recreational Drug Use Recreational Drug Use: No ED ROS GENERAL - Review of Systems Review Of Systems: See Below Constitutional: Denies: Fever, Chills Respiratory: Denies: Shortness of Breath Cardiovascular: Denies: Chest Pain GI/Abdominal: Reports: Abdominal Pain (Wound is slightly sore) ED EXAM, SKIN/RASH Exam: See Below Exam Limited By: No Limitations General Appearance: Alert, No Apparent Distress Respiratory/Chest: No Respiratory Distress, Lungs Clear Cardiovascular: Regular Rate, Rhythm GI/Abdominal: Soft, Other (The inferior aspect of the incision has opened, a length of 5 cm and approximately 1 cm wide. Subcutaneous sutures are seen in the wound and are intact. There is no inflammation, redness or drainage) Neurological: Alert, Oriented Psychiatric: Normal Affect, Normal Mood Skin: Warm, Dry Course - Vital Signs Last Recorded V/S: Last Vital Signs Temp 97.8 F 10/22/17 20:56 Pulse 90 10/22/17 20:56 Resp 18 10/22/17 20:56 BP 165/86 H 10/22/17 20:56 Pulse Ox 97 10/22/17 20:56 - Re-Assessments/Exams Free Text/Narrative Re-Assessment/Exam: 10/22/17 23:[address] Logan, the wound was covered with sterile dressings and the patient is to see Dr. Logan tomorrow morning at 10 AM in the clinic. Departure - Departure Time of Disposition: 21:01 Disposition: Home, Self-Care 01 Condition: Good Clinical Impression: Wound dehiscence, surgical Qualifiers: Encounter type: initial encounter Qualified Code(s): T81.31XA - Disruption of external operation (surgical) wound, not elsewhere classified, initial encounter - Discharge Information Instructions: Wound Care, Adult Referrals: Susanna Sahni MD [Primary Care Provider] - Forms: ED Department Discharge Care Plan Goals: Keep wound covered until tomorrow morning and see Dr. Logan at the clinic at 10 AM. They will work you in to be seen.
== END 2017-10-22 21:01 | disposition home or self-care (01) ==
LOC: JP.ED 20:02
DX: T81.31XA Disruption of external operation (surgical) wound, not elsewhere classified, initial encounter (principal); I10 Essential (primary) hypertension; E11.40 Type 2 diabetes mellitus with diabetic neuropathy, unspecified; F41.9 Anxiety disorder, unspecified; F32.9 Major depressive disorder, single episode, unspecified; D64.9 Anemia, unspecified; E66.9 Obesity, unspecified; Z79.899 Other long term (current) drug therapy; Z88.1 Allergy status to other antibiotic agents
CPT/HCPCS: 99283